=== PATIENT | female | born 1985 | race Caucasian/White ===

== ENCOUNTER 2016-07-25 16:59 | Emergency (ER) | payer OTHER ==
[~2016-07-25] VITALS: Ht 147.3 cm; Wt 43.5 kg
[~2016-07-25 16:59] MED LIST: ASPI-390 PO; IBUP-1050 PO; MULTTAB PO; OMEGCAP2 PO
[2016-07-25 17:03] VITALS: Ht 147.3 cm; Wt 43.5 kg
[2016-07-25] MEDS ORDERED: LORAZEPAM 2 MG/ML 1 ML VIAL IV STA ×2 (18:38→21:33)
[2016-07-25 18:40] VITALS: O2SAT 96
[2016-07-25 18:54] LABS: HEMATOCRIT 38.5 % (37-47); MEAN CORPUSCULAR HEMOGLOBIN 27.2 pg (25-34); MEAN PLATELET VOLUME 9.3 fL (7.4-10.4); PLATELET COUNT 306 K/uL (130-400); RED BLOOD COUNT 4.81 M/uL (4.2-5.4); WHITE BLOOD COUNT 11.24 K/uL (4.8-10.8)
[2016-07-25 19:03] LABS: INR 0.9 (0.9-1.1)
[2016-07-25 19:14] LABS: BUN/CREATININE RATIO 8.5 (10-20); CALCIUM 8.5 mg/dl (8.5-10.1); CREATININE 0.72 mg/dl (0.60-1.20); MAGNESIUM 1.8 mg/dl (1.8-2.4); POTASSIUM 2.9 mmol/L (3.5-5.1); PREG INTERNAL NEGATIVE QC NEG CLEAR BACKGROUND; PREG INTERNAL POSITIVE QC POS CONTROL LINE
[2016-07-25 19:23] LABS: THYROID STIMULATING HORMONE 1.65 uIu/ml (0.300-4.500)
[2016-07-25 19:40] LABS: BASO % 0.2 %; BASO ABS # 0.02 K/uL (0-0.2); COMPLETE YES; EOS % 0.4 %; IG% 0.2 %; LYMPH % 12.7 %; LYMPH ABS # 1.43 K/uL (1.2-3.4); MONO % 3.8 %; NEUT % 82.7 %
[2016-07-25] MEDS ORDERED: POTASSIUM CHLORIDE 10 MEQ / 100ML WTR IV STA (20:25)
[2016-07-25] MEDS ORDERED: POTASSIUM CHLORIDE 10 MEQ TABCR PO STA (20:25)
[2016-07-25] MEDS ORDERED: OPTIRAY 320 IV PRN (20:30)
--- NOTE | 2016-07-25 20:53 | DIAGNOSTIC IMAGING REPORT ---
CT ANGIOGRAPHY OF THE CHEST, PULMONARY EMBOLUS PROTOCOL CLINICAL HISTORY: Faint. Hot flashes. COMPARISON STUDY: No previous studies for comparison. TECHNIQUE: Following IV administration of 77 mL of Optiray-320, helical axial images of the chest were obtained utilizing the pulmonary embolus protocol. Maximal intensity projections and sagittal and coronal reformats were viewed on an independent 3D workstation. IV contrast was administered without complication. CT DOSE: 163.78 mGy.cm FINDINGS: No pulmonary emboli are identified. There is no evidence of thoracic aortic dissection. The size of the heart is normal. There is no pericardial effusion. No enlarged axillary, mediastinal or hilar lymph nodes are present. There is an azygos fissure. The central airways are patent. Lungs are clear. There is no pneumothorax or pleural effusion. Bony thorax and upper abdomen are unremarkable within visualized portions. IMPRESSION: 1. No pulmonary emboli identified. 2. No acute intrathoracic findings. Electronically signed by: Jus Case M.D. 07/25/2016 8:51 PM Dictated Date/Time: 07/25/2016 8:45 PM
[2016-07-25 23:15] VITALS: BP 123/71; PULSE 89; O2SAT 96
--- NOTE | 2016-07-26 00:34 | EMERGENCY ROOM VISIT NOTE ---
History Report prepared by Alessandro: Philly Freed Under the Supervision of: Dr. Ricardo Conner M.D. First contact with patient: 18:26 Chief Complaint: SYNCOPE (NEAR SYNCOPE) Stated Complaint: FAINT, HOT FLASHES Nursing Triage Summary: Pt states, "I am shaky and feel like I could pass out. I had two excedrin migraines and some coffee. I had a h/a." No h/a in triage. Denies cp. +SOB. History of Present Illness The patient is a 31 year old female who presents to the Emergency Room with complaints of a near syncopal episode that occurred around 1500 today. The patient states that she has a history of migraines and states that she typically takes Excedrin Migraine to treat them. She states that around 0830 this morning she noticed a headaches so she took an Excedrin. The patient states that around 1130 she had three cups of coffee. She states that at 1230 she took another Excedrin Migraine tablet. She states that she has been feeling jittery and shaky all day. The patient states that she has been feeling lightheaded and dizzy today. She denies any loss of consciousness today. The patient states that around 1630 she noticed her heart rate increasing. She states that her symptoms have worsened with standing. The patient notes a history of anxiety and anemia and states that she has been under increased stress recently. She denies any fever, flu-like symptoms chest pain, abdominal pain, vomiting, or diarrhea. The patient states that she is currently menstruating, states that it is normally heavy, and states that it is normal timing. She states that she last had her thyroid tested 6 years ago, noting that her results were borderline high. The patient denies any recent weight loss or hair thinning, but states that she is always hot at night. She states that she does Pilates often and becomes short of breath, but denies having any of these symptoms with her exercise. The patient denies any drug use , control use, or tobacco use. She denies any family history of sudden . The patient states that she ate today, but not much. She states that she drank 4-5 glasses of water prior to coming to the emergency department. Source of History: patient Onset: 1500 today Position: other (global) Quality: other (lightheadedness) Timing: constant Modifying Factors (Worsening): elevation (standing) Associated Symptoms: No LOC, No abdominal pain, No diarrhea, No fevers, No vomiting Note: Associated Symptoms: jittery, shaky, lightheaded, dizzy Review of Systems See HPI for pertinent positives & negatives. A total of 10 systems reviewed and were otherwise negative. Past Medical & Surgical Medical Problems: (1) Anemia (2) Anxiety Family History Diabetes mellitus Hypertension Social History Smoking Status: Former Smoker Alcohol Use: none Drug Use: none Marital Status: Occupation Status: employed Current/Historical Medications Scheduled Ozexwnf-Fffjnftbmbvzs-Zqmrlalp (Excedrin Migraine), 1 TAB PO PRN Allergies Coded Allergies: Sulfa Drugs (Verified Allergy, Intermediate, RASH, SOB, 07/25/16) Physical Exam Vital Signs Date Time Temp Pulse Resp B/P Pulse Ox O2 Delivery O2 Flow Rate FiO2 07/25/16 23:15 89 18 123/71 96 07/25/16 23:14 119 18 123/71 96 Room Air 07/25/16 22:20 116 07/25/16 22:13 116 20 139/65 98 Room Air 07/25/16 21:12 119 20 126/75 99 Room Air 07/25/16 20:10 150 16 142/72 100 Room Air 07/25/16 20:02 130 139/73 139 149/70 150 133/79 07/25/16 18:43 117 07/25/16 18:40 96 Room Air 07/25/16 18:40 120 16 142/72 100 Room Air 07/25/16 17:03 127 20 123/65 100 Room Air Physical Exam Constitutional: Vital signs reviewed. Eyes: Pupils are equal round reactive to light. Conjunctiva are noninjected. ENT: Pharynx is clear without erythema or exudate. Mucous membranes are moist. Neck supple without meningeal signs. No thyromegaly Respiratory: Clear to auscultation bilaterally. Breath sounds are equal bilaterally. Cardiovascular: Tachycardic rate at 115 and regular rhythm. No rubs or gallops. GI: Soft, nondistended and nontender. Bowel sounds are present. Musculoskeletal: No peripheral edema. No lower extremity tenderness. Integumentary: No cyanosis. Neurological: The patient is awake and alert. No focal deficits. Psychiatric: Normal affect. Medical Decision & Procedures ER Provider Diagnostic Interpretation: CT results as stated below per my review and radiologist interpretation. CT ANGIOGRAPHY OF THE CHEST, PULMONARY EMBOLUS PROTOCOL CLINICAL HISTORY: Faint. Hot flashes. COMPARISON STUDY: No previous studies for comparison. TECHNIQUE: Following IV administration of 77 mL of Optiray-320, helical axial images of the chest were obtained utilizing the pulmonary embolus protocol. Maximal intensity projections and sagittal and coronal reformats were viewed on an independent 3D workstation. IV contrast was administered without complication. CT DOSE: 163.78 mGy.cm FINDINGS: No pulmonary emboli are identified. There is no evidence of thoracic aortic dissection. The size of the heart is normal. There is no pericardial effusion. No enlarged axillary, mediastinal or hilar lymph nodes are present. There is an azygos fissure. The central airways are patent. Lungs are clear. There is no pneumothorax or pleural effusion. Bony thorax and upper abdomen are unremarkable within visualized portions. IMPRESSION: 1. No pulmonary emboli identified. 2. No acute intrathoracic findings. Electronically signed by: Jus Case M.D. 07/25/2016 8:51 PM Dictated Date/Time: 07/25/2016 8:45 PM Laboratory Results 07/25/16 18:40 Red Blood Count 4.81, Mean Corpuscular Volume 80.0, Mean Corpuscular Hemoglobin 27.2, Mean Corpuscular Hemoglobin Concent 34.0, Mean Platelet Volume 9.3, Neutrophils (%) (Auto) 82.7, Lymphocytes (%) (Auto) 12.7, Monocytes (%) (Auto) 3.8, Eosinophils (%) (Auto) 0.4, Basophils (%) (Auto) 0.2, Neutrophils # (Auto) 9.29, Lymphocytes # (Auto) 1.43, Monocytes # (Auto) 0.43, Eosinophils # (Auto) 0.05, Basophils # (Auto) 0.02 07/25/16 18:40 Test 07/25/16 18:40 07/25/16 18:48 White Blood Count 11.24 K/uL (4.8-10.8) Red Blood Count 4.81 M/uL (4.2-5.4) Hemoglobin 13.1 g/dL (12.0-16.0) Hematocrit 38.5 % (37-47) Mean Corpuscular Volume 80.0 fL (80-100) Mean Corpuscular Hemoglobin 27.2 pg (25-34) Mean Corpuscular Hemoglobin Concent 34.0 g/dl (32-36) Platelet Count 306 K/uL (130-400) Mean Platelet Volume 9.3 fL (7.4-10.4) Neutrophils (%) (Auto) 82.7 % Lymphocytes (%) (Auto) 12.7 % Monocytes (%) (Auto) 3.8 % Eosinophils (%) (Auto) 0.4 % Basophils (%) (Auto) 0.2 % Neutrophils # (Auto) 9.29 K/uL (1.4-6.5) Lymphocytes # (Auto) 1.43 K/uL (1.2-3.4) Monocytes # (Auto) 0.43 K/uL (0.11-0.59) Eosinophils # (Auto) 0.05 K/uL (0-0.5) Basophils # (Auto) 0.02 K/uL (0-0.2) RDW Standard Deviation 38.3 fL (36.4-46.3) RDW Coefficient of Variation 13.3 % (11.5-14.5) Immature Granulocyte % (Auto) 0.2 % Immature Granulocyte # (Auto) 0.02 K/uL (0.00-0.02) Red Blood Cell Morphology Unremarkable Prothrombin Time 10.0 SECONDS (9.0-12.0) Prothromb Time International Ratio 0.9 (0.9-1.1) Activated Partial Thromboplast Time 26.4 SECONDS (21.0-31.0) Partial Thromboplastin Ratio 1.0 Anion Gap 12.0 mmol/L (3-11) Est Creatinine Clear Calc Drug Dose 73.1 ml/min Estimated GFR () 129.3 Estimated GFR (Non- 111.6 BUN/Creatinine Ratio 8.5 (10-20) Calcium Level 8.5 mg/dl (8.5-10.1) Magnesium Level 1.8 mg/dl (1.8-2.4) Total Bilirubin 0.4 mg/dl (0.2-1) Direct Bilirubin 0.1 mg/dl (0-0.2) Aspartate Amino Transf (AST/SGOT) 26 U/L (15-37) Alanine Aminotransferase (ALT/SGPT) 31 U/L (12-78) Alkaline Phosphatase 58 U/L (45-117) Total Protein 7.7 gm/dl (6.4-8.2) Albumin 3.9 gm/dl (3.4-5.0) Thyroid Stimulating Hormone (TSH) 1.650 uIu/ml (0.300-4.500) Free Thyroxine 1.38 ng/dl (0.80-1.60) Human Chorionic Gonadotropin, Qual NEG (NEG) Bedside D-Dimer > 450 ng/mlFEU (0-450) Bedside Troponin I 0.000 ng/ml (0-0.045) Laboratory results as reviewed by me. Medications Administered Medications (Trade) Dose Ordered Sig/Osiel Route Start Time Stop Time Status Last Admin Dose Admin Lorazepam (Ativan Inj) 0.5 mg NOW STAT IV 07/25/16 18:38 07/25/16 18:40 DC 07/25/16 20:05 0.5 MG Potassium Chloride (Kcl 10 Meq / Wtr) 10 meq NOW STAT IV 07/25/16 20:25 07/25/16 20:26 DC 07/25/16 21:07 10 MEQ Potassium Chloride (Klor-Con M10) 10 meq NOW STAT PO 07/25/16 20:25 07/25/16 20:26 DC 07/25/16 21:06 10 MEQ Lorazepam (Ativan Inj) 0.5 mg NOW STAT IV 07/25/16 21:33 07/25/16 21:34 DC 07/25/16 22:10 0.5 MG ECG Indication: syncope Rate (beats per minute): 127 Rhythm: sinus tachycardia Findings: no acute ischemic change, no ectopy, other (no preexcitation) ED Course 1827: The patient was evaluated in room A9B. A complete history and physical exam was performed. 1837: Ordered Ativan Inj 0.5 mg IV. 2024: Ordered Potassium Chloride 10 meq PO, Potassium Chloride 10 meq IV. 2034: I reevaluated the patient and she is feeling better. I discussed the test results with her at this time. She is going to have a CT scan. 2132: I reevaluated the patient and she is still feeling anxious. Ordered Ativan Inj 0.5 mg IV. 2229: I reevaluated the patient and she just got her second dose of Ativan and is feeling a little bit better. 2244: I reevaluated the patient and she is feeling better. She is ready to go home. She has had no palpitations or chest pain. The patients heart rate is still around 115 beats per minutes. I discussed all the exam findings with her and I discussed the treatment plan. I told her to avoid all caffeine and stimulants. She verbalized complete understanding and agreement. She is ready to go home. Medical Decision This is a 31-year-old female who presents with lightheadedness and palpitations. Differential diagnosis includes dehydration, electrolyte abnormality, metabolic derangement, hyperthyroidism, dysrhythmia, anemia, caffeine overdose. I did perform a limited focused review of portions of the patient's old chart on the electronic medical record. The patient has had no recent pertinent visits to this hospital. I did evaluate the patient as noted above. The patient is presenting with feeling lightheaded and palpitations. She is tachycardic on examination. She does state that she took a large amount of caffeine today in the form of her Excedrin Migraine as well as 3 cups of coffee. She also states that she has significant anxiety which may be contributing to her tachycardia. IV access was established. The patient was placed on a continuous monitor and storage bin tender. I did order and personally review the patient's 12-lead EKG as described above. The patient has sinus tachycardia without evidence of preexcitation or other dysrhythmia. I did order and review the patient's blood work as noted in the electronic medical record. Thyroid function tests are unremarkable. She is hypokalemic. I did treat her with IV KCl and oral potassium. It is unclear why she is hypokalemic and she will need to have this tested again by her regular physician. Her troponin is negative. D-dimer is elevated. I did discuss this with the patient and she agreed to CT scanning. I did order a CT of the chest. I did review the images myself as well as the radiology report as described above. There is no evidence of pulmonary embolism or acute process. I did treat the patient with Ativan IV 2. She did feel better although had persistent tachycardia. She stated, however, that she did not feel any palpitations. At this time I did recommend very close follow up with her physician within 48 hours for further evaluation. She currently feels sleepy from the Ativan but otherwise has no complaints. She was discharged with her in good condition. She was given return instructions as outlined below. Impression Primary Impression: Dizziness Additional Impressions: Tachycardia Hypokalemia Scribe Attestation The scribe's documentation has been prepared under my direct and personally reviewed by me in its entirety. I confirm that the note above accurately reflects all work, treatment, procedures, and medical decision making performed by me. Departure Information Dispostion Home / Self-Care Referrals No Doctor, Assigned (PCP) Forms HOME CARE DOCUMENTATION FORM, IMPORTANT VISIT INFORMATION, Work Instructions Patient Instructions ED Dizziness [facility], ED Palpitations, My [facility] Additional Instructions You have been examined and treated today on an emergency basis only. This is not a substitute for, or an effort to provide, complete comprehensive medical care. It is impossible to recognize and treat all injuries or illnesses in a single emergency department visit. It is therefore important that you follow up closely with your physician within 48 hours. Call as soon as possible for an appointment. Return for worsening symptoms or if you develop fever, vomiting, chest pain, shortness of breath or any other concerning symptoms. Problem Qualifiers
[2016-07-29] MEDS ORDERED: PROP20TA67 PO (09:51)
== END 2016-07-25 23:30 | disposition home or self-care (01) ==
LOC: C.EDB 17:00 → C.EDA 23:30
DX: R42 Dizziness and giddiness (principal); R00.0 Tachycardia, unspecified; E87.6 Hypokalemia; Z83.3 Family history of diabetes mellitus; Z82.49 Family history of ischemic heart disease and other diseases of the circulatory system; Z87.891 Personal history of nicotine dependence; D64.9 Anemia, unspecified

== ENCOUNTER 2016-07-27 15:44 | Observation (INO) | payer OTHER ==
[~2016-07-27] VITALS: Ht 147.3 cm; Wt 47.6 kg
[~2016-07-27 15:44] MED LIST changes: -IBUP-1050 PO; -MULTTAB PO; -OMEGCAP2 PO
--- NOTE | 2016-07-27 16:04 | EMERGENCY ROOM VISIT NOTE ---
History Report prepared by Alessandro: Jen Medina Under the Supervision of: Dr. Zaid Mendez M.D. First contact with patient: 15:57 Chief Complaint: ANXIETY Stated Complaint: CHEST PAIN, ANXIETY, DIZZINESS, SOB Nursing Triage Summary: pt c/o chest pain and high anxiety for same sx started 1000 with anxiety. chets pain strated 2 hours ago History of Present Illness The patient is a 31 year old female who presents to the Emergency Room with complaints of persistent anxiety that started around 1000 this morning. The patient mentions that these symptoms started shortly after drinking a cup of coffee. Associated symptoms include chest pain that started 2 hours [employer], shortness of breath, and shaking. The patient was evaluated in the ED 3 days ago for similar symptoms. She was given Ativan which relieved her symptoms. The patient does not have Ativan at home. She denies suicidal or homicidal ideations. She also denies visual or auditory hallucinations. She's had no lightheadedness or dizziness. No focal numbness or weakness. She has no significant bleeding. Denies . Source of History: patient, spouse/significant other Onset: 1000 this morning Position: other (Global ) Timing: other (Persistent ) Modifying Factors (Relieving): other (None) Associated Symptoms: + SOB, + chest pain Note: Additional associated symptoms include shaking Review of Systems See HPI for pertinent positives & negatives. A total of 10 systems reviewed and were otherwise negative. Past Medical & Surgical Medical Problems: (1) Anemia (2) Anxiety Old medical records were reviewed. Nurse's notes were reviewed and I agree with. Family History Diabetes mellitus Hypertension Social History Smoking Status: Never Smoker Alcohol Use: none Drug Use: none Marital Status: Occupation Status: employed Current/Historical Medications Scheduled Yabnzoy-Qkunxhbmastrj-Jjozgqyx (Excedrin Migraine), 1 TAB PO PRN Allergies Coded Allergies: Sulfa Drugs (Verified Allergy, Intermediate, RASH, SOB, 07/27/16) Physical Exam Vital Signs Date Time Temp Pulse Resp B/P Pulse Ox O2 Delivery O2 Flow Rate FiO2 07/27/16 18:48 104 16 112/68 100 Room Air 07/27/16 17:18 103 15 120/68 99 Room Air 07/27/16 16:48 108 07/27/16 15:48 36.8 129 18 130/63 100 Room Air Physical Exam General: Non ill appearing young female in no acute distress. HEENT: Normal cephalic atraumatic. Pupils are equal round and reactive to light. Extraocular movements are intact. Oropharynx is pink with moist mucous membranes. No swelling of the mouth lips or tongue. Neck: Supple with a midline trachea. No meningeal signs or stiffness, no JVD or bruits. No Stridor. Chest: Clear to auscultation bilaterally. No wheezes or rhonchi. No increased work of breathing. Heart: Tachycardic but regular rate and rhythm. No murmurs appreciated Abdomen: Soft nontender, nondistended without rebound guarding or rigidity. Extremities: No cyanosis clubbing or edema. No calf tenderness or assymetry Spine/Back. Non tender to palpation. No CVA tenderness Skin: Good turgor without rashes. Neurologic exam: Cranial nerves two through 12 are intact. Motor and sensation are intact and symmetrical throughout. Psych: Normal affect. Mildly anxious, denies suicidal or homicidal ideations. Medical Decision & Procedures Laboratory Results 07/27/16 16:25 Test 07/27/16 16:25 07/27/16 16:30 Anion Gap 8.0 mmol/L (3-11) Est Creatinine Clear Calc Drug Dose 80.9 ml/min Estimated GFR () 137.1 Estimated GFR (Non- 118.3 BUN/Creatinine Ratio 6.5 (10-20) Calcium Level 9.1 mg/dl (8.5-10.1) Total Bilirubin 0.5 mg/dl (0.2-1) Direct Bilirubin 0.2 mg/dl (0-0.2) Aspartate Amino Transf (AST/SGOT) 16 U/L (15-37) Alanine Aminotransferase (ALT/SGPT) 23 U/L (12-78) Alkaline Phosphatase 55 U/L (45-117) Bedside Troponin I 0.000 ng/ml (0-0.045) Total Protein 7.7 gm/dl (6.4-8.2) Albumin 4.0 gm/dl (3.4-5.0) Lipase 153 U/L (73-393) Thyroid Stimulating Hormone (TSH) 1.390 uIu/ml (0.300-4.500) Ethyl Alcohol mg/dL < 3.0 mg/dl (0-3) Urine Opiates Screen NEG (NEG) Urine Methadone, Qualitative NEG (NEG) Urine Barbiturates NEG (NEG) Urine Phencyclidine (PCP) Level NEG (NEG) Ur Amphetamine/Methamphetamine NEG (NEG) MDMA (Ecstasy) Screen NEG (NEG) Urine Benzodiazepines Screen NEG (NEG) Urine Cocaine Metabolite NEG (NEG) Urine Marijuana (THC) NEG (NEG) Laboratory studies as stated above per my review. Medications Administered Medications (Trade) Dose Ordered Sig/Osiel Route Start Time Stop Time Status Last Admin Dose Admin Lorazepam 0.5 mg 0.5 mg NOW STAT SL 07/27/16 16:13 07/27/16 16:14 DC 07/27/16 16:20 0.5 MG Sodium Chloride 1,000 ml @ 999 mls/hr Q1H1M STAT IV 07/27/16 18:37 07/27/16 19:37 DC 07/27/16 18:47 999 MLS/HR Sodium Chloride (Nss 1000ml) 1,000 ml @ 150 mls/hr Q6H40M ONCE IV 07/27/16 18:37 07/27/16 21:54 DC 07/27/16 20:23 150 MLS/HR Lorazepam (Ativan Inj) 0.5 mg NOW STAT IV 07/27/16 18:37 07/27/16 18:38 DC 07/27/16 18:46 0.5 MG Procedure 1954: EKG #2: Sinus tachycardia rate of 107. No ischemic changes. No ectopy. ECG Indication: chest pain Rate (beats per minute): 106 Rhythm: sinus tachycardia Findings: no acute ischemic change, no ectopy Comparison ECG Date: July 26, 2015 Change: no significant change ED Course 1600: Past medical records reviewed. The patient was evaluated in room A8, and a complete history and physical examination were performed. 1613: Ordered Ativan Tablet 0.5 mg SL. 1823: I reevaluated the patient. She appears well. Her heart rate raised to 150 while discussing findings with the patient. It immediately came back down. 1836: Ordered Ativan Injection 0.5 mg IV, Sodium Chloride 1,000 ml @ 999 mls/hr IV. 1954: I reevaluated the patient. Her heart rate raises to 140 when I enter the room. 2008: I discussed the patient's case with Dr. Torrez ([facility] [place] He will evaluate the patient for further management and care. Medical Decision Differentials include, but are not limited to; Anxiety, depression, arrhythmia, electrolyte/metabolic abnormality, anemia. This patient comes in as described above. She was placed in room A8. She is here for treatment evaluation tachycardic area and anxiety. She looks well and does not appear to be anxious. She was given Ativan 0.5 mg by mouth an extensive workup was obtained. she was seen here couple days ago and reviewed her report then she had a negative CT for PE. she had normal TSH so therefore this is unlikely thyroid. I did repeat her labs here. she has no acute electrolyte or metabolic abnormalities .EKG shows sinus tachycardia .upon reassessment she still says she feels anxious and her heart rate goes up in the 140s- 150s when she just sitting there and she does not appear to be anxious. In light of this, I did establish an IV and had her given 1 L IV normal saline bolus and additional EKG was obtained which shows sinus tachycardia no change compared to EKG #1. With her persistent tachycardia, I do think she needs to be admitted for further treatment and evaluation she may need to be started on a beta srinath or antianxiety medications. Dr. Hein was consulted and saw the patient ER will admit her for these measures. Consults Time Called: 2003 Consulting Physician: Dr. Torrez ([facility] [place]) Returned Call: 2008 I discussed the patient's case with Dr. Torrez ([facility] [place] He will evaluate the patient for further management and care. Impression Primary Impression: Tachycardia Additional Impression: Acute anxiety Scribe Attestation The scribe's documentation has been prepared under my direction and personally reviewed by me in its entirety. I confirm that the note above accurately reflects all work, treatment, procedures, and medical decision making performed by me. Departure Information Dispostion Being Evaluated By Hospitalist Referrals No Doctor, Assigned (PCP) Patient Instructions My [facility] Problem Qualifiers
[2016-07-27] MEDS ORDERED: LORAZEPAM 0.5 MG TAB SL STA (16:13)
[2016-07-27 16:37] LABS: BASO % 0.2 %; BASO ABS # 0.02 K/uL (0-0.2); COMPLETE YES; EOS % 0.1 %; HEMATOCRIT 38.3 % (37-47); IG% 0.2 %; LYMPH % 11.1 %; LYMPH ABS # 1.16 K/uL (1.2-3.4); MEAN CELL VOLUME 81.7 fL (80-100); MEAN CORPUSCULAR HEMOGLOBIN 28.4 pg (25-34); MEAN CORPUSCULAR HGB CONC 34.7 g/dl (32-36); MEAN PLATELET VOLUME 9.6 fL (7.4-10.4); MONO % 3.7 %; NEUT % 84.7 %; PLATELET COUNT 311 K/uL (130-400); RED BLOOD COUNT 4.69 M/uL (4.2-5.4); WHITE BLOOD COUNT 10.44 K/uL (4.8-10.8)
[2016-07-27 17:02] LABS: BUN/CREATININE RATIO 6.5 (10-20); CALCIUM 9.1 mg/dl (8.5-10.1); CREATININE 0.65 mg/dl (0.60-1.20); POTASSIUM 3.9 mmol/L (3.5-5.1)
[2016-07-27 17:14] LABS: BENZODIAZEPINE, URINE NEG (NEG); COCAINE,URINE NEG (NEG); PHENCYCLIDINE, URINE NEG (NEG)
[2016-07-27] MEDS ORDERED: SODIUM CHLORIDE 0.9% 1000ML 1,000 ML IV STA (18:37)
[2016-07-27] MEDS ORDERED: LORAZEPAM 2 MG/ML 1 ML VIAL IV STA (18:37)
[2016-07-27] MEDS ORDERED: SODIUM CHLORIDE 0.9% 1000ML 1,000 ML IV ONE (18:37)
[2016-07-27] MEDS ORDERED: PROPRANOLOL HCL 10 MG TAB PO STA (20:44)
[2016-07-27] MEDS ORDERED: LORAZEPAM 1 MG TAB PO STA (20:44)
[2016-07-27] MEDS ORDERED: ONDANSETRON INJ 2 MG/ML 2 ML VIAL IV PRN (20:45)
[2016-07-27] MEDS ORDERED: ACETAMINOPHEN 325 MG TAB PO PRN (20:45)
[2016-07-27] MEDS ORDERED: MAGNESIUM HYDROXIDE SUSP 30 ML UDC PO PRN (20:45)
[2016-07-27] MEDS ORDERED: TRAMADOL HCL 50 MG TAB PO PRN (20:45)
[2016-07-27] MEDS ORDERED: POLYETHYLENE (MIRALAX) 17 GM PACK PO PRN (20:45)
[2016-07-27] MEDS ORDERED: ALUMINUM/MAGNESIUM/SIMETH (MAALOX MAX) 30 ML UDC PO PRN (20:45)
--- NOTE | 2016-07-27 20:56 | History and Physical ---
History & Physical Date & Time of Service: Jul 27, 2016 at 20:46 Chief Complaint: Chest Pain, Anxiety, Dizziness, Sob Primary Care Physician: No Doctor, Assigned History of Present Illness Source: patient 31 y/o F with no known medical history. The pt took 2 Excedrin and drank 2 cups of coffee on Sat and developed anxiety and a racing HR after. This resolved spontaneously and she did not have any coffee the following day. She had a cup of coffee again today and the rapid HR returned. It did not resolve for several hours prompting her to visit the emergency room. She describes chest tightness, SOB and anxiety along with tachycardia. On arrival to the ER her HR was between 130-150. An EKG revealed sinus tachycardia. The pt states that she had a similar episode 10 yrs prior where her HR was up to 160. There was no etiology delineated at that time and her HR returned to normal with sedatives. She received 2 doses of PO Ativan in the ER which served to slow her HR briefly however it persists at 130-140 at the time of admission. Past Medical/Surgical History Medical Problems: (1) Anemia Status: Resolved Family History Diabetes mellitus Hypertension Pt exercises regularly, does not drink or smoke, is studying [employer] currently. Social History Smoking Status: Never Smoker Drug Use: none Marital Status: Housing status: lives with family Occupational Status: employed Allergies Coded Allergies: Sulfa Drugs (Verified Allergy, Intermediate, RASH, SOB, 07/27/16) Home Medications Scheduled Retbyba-[id number] (Excedrin Migraine), 1 TAB PO PRN Review of Systems Constitutional: No chills, No fever, No sweats Eyes: No eye pain, No worsening of vision ENT: No hearing loss, No nasal symptoms, No unusual epistaxis Respiratory: + shortness of breath, No cough, No sputum Cardiovascular: + chest pain (chest tightness with tachycardia) Abdomen: No nausea, No pain, No vomiting Musculoskeletal: No joint pain, No muscle pain Genitourinary - Female: No dysuria, No urinary frequency, No urinary urgency Neurologic: No memory loss, No paralysis Psychiatric: + anxiety, No depression symptoms Endocrine: No fatigue Hematologic / Lymphatic: No abnormal bleeding/bruising Integumentary: No rash Allergic / Immunologic: No environmental allergies Physical Exam Vital Signs Date Time Temp Pulse Resp B/P Pulse Ox O2 Delivery O2 Flow Rate FiO2 07/27/16 18:48 104 16 112/68 100 Room Air 07/27/16 17:18 103 15 120/68 99 Room Air 07/27/16 16:48 108 07/27/16 15:48 36.8 129 18 130/63 100 Room Air General Appearance: WD/WN, no apparent distress Head: normocephalic, atraumatic Eyes: normal inspection, PERRL, EOMI ENT: normal ENT inspection, pharynx normal Neck: supple, no adenopathy, thyroid normal, no JVD Respiratory/Chest: chest non-tender, lungs clear, normal breath sounds, no respiratory distress, no accessory muscle use Cardiovascular: no edema, no gallop, no JVD, no murmur, normal peripheral pulses, + tachycardia Abdomen/GI: normal bowel sounds, non tender, soft Back: normal inspection, no CVA tenderness, no muscle spasm, normal range of motion Extremities/Musculoskelatal: normal inspection, no calf tenderness, normal capillary refill, no pedal edema, normal range of motion Neurologic/Psych: drywall 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 II-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 nml as tested, no motor/sensory deficits, alert, normal mood/affect, normal reflexes, oriented x 3 Skin: normal color, warm/dry, no rash Diagnostics Laboratory Results Results Past 24 Hours Test 07/27/16 16:25 07/27/16 16:30 07/27/16 20:43 Range/Units RDW Standard Deviation 39.5 36.4-46.3 fL RDW Coefficient of Variation 13.2 11.5-14.5 % Immature Granulocyte % (Auto) 0.2 % Immature Granulocyte # (Auto) 0.02 0.00-0.02 K/uL Sodium Level 135 136-145 mmol/L Potassium Level 3.9 3.5-5.1 mmol/L Chloride Level 101 98-107 mmol/L Carbon Dioxide Level 26 21-32 mmol/L Anion Gap 8.0 3-11 mmol/L Blood Urea Nitrogen 4 7-18 mg/dl Creatinine 0.65 0.60-1.20 mg/dl Est Creatinine Clear Calc Drug Dose 80.9 ml/min Estimated GFR () 137.1 Estimated GFR (Non- 118.3 BUN/Creatinine Ratio 6.5 10-20 Random Glucose 106 70-99 mg/dl Calcium Level 9.1 8.5-10.1 mg/dl Total Bilirubin 0.5 0.2-1 mg/dl Direct Bilirubin 0.2 0-0.2 mg/dl Aspartate Amino Transf (AST/SGOT) 16 15-37 U/L Alanine Aminotransferase (ALT/SGPT) 23 12-78 U/L Alkaline Phosphatase 55 45-117 U/L Bedside Troponin I 0.000 0-0.045 ng/ml Total Protein 7.7 6.4-8.2 gm/dl Albumin 4.0 3.4-5.0 gm/dl Lipase 153 73-393 U/L Ethyl Alcohol mg/dL < 3.0 0-3 mg/dl Urine Opiates Screen NEG NEG Urine Methadone, Qualitative NEG NEG Urine Barbiturates NEG NEG Urine Phencyclidine (PCP) Level NEG NEG Ur Amphetamine/Methamphetamine NEG NEG MDMA (Ecstasy) Screen NEG NEG Urine Benzodiazepines Screen NEG NEG Urine Cocaine Metabolite NEG NEG Urine Marijuana (THC) NEG NEG EKG Sinus tach Impression Assessment and Plan 31 y/o F with no known medical history. The pt took 2 Excedrin and drank 2 cups of coffee on Sat and developed anxiety and a racing HR after. This resolved spontaneously and she did not have any coffee the following day. She had a cup of coffee again today and the rapid HR returned. It did not resolve for several hours prompting her to visit the emergency room. She describes chest tightness, SOB and anxiety along with tachycardia. On arrival to the ER her HR was between 130-150. An EKG revealed sinus tachycardia. Persistent sinus tach - Pt will be monitored on telemetry, we will check a TSH and order an echo. Cardiology eval requested. Pt will be provided with Propranolol and Ativan this PM. She doesn't have ongoing CP however we will provide analgesics as needed. Suspicion is low currently for cardiomyopathy. Catecholamine excess is also unlikely as she has a low-normal BP. She does not have risk factors for PE, hypoxia or evidence of strain on EKG. Lovenox prophylaxis - full code Total time for this admit including review of labs , records , EKG and discussion with pt and ER MD - 33 min Level of Care Telemetry Resuscitation Status FULL RESUSCITATION VTE Prophylaxis VTE Risk Assessment Done? Y/N: Yes Risk Level: Low Given or contraindicated: Enoxaparin (Lovenox)SQ
[2016-07-27] MEDS ORDERED: IV FLUIDS COMPLETED PRN (21:00)
[2016-07-27 21:33] VITALS: BP 109/76; PULSE 112; TEMP 36.8; O2SAT 100; Ht 147.3 cm; Wt 47.6 kg
[2016-07-27] MEDS ORDERED: D5NSS + 20MEQ KCL 1,000 ML IV SCH (22:30)
[2016-07-27 23:38] VITALS: BP 87/54; PULSE 108; TEMP 36.6; O2SAT 98
[2016-07-28 04:01] VITALS: BP 97/62; PULSE 90; TEMP 36.7; O2SAT 97
[2016-07-28 08:03] VITALS: BP 115/78; PULSE 108; TEMP 36.8; O2SAT 100
[2016-07-28] MEDS ORDERED: ENOXAPARIN 30 MG/0.3 ML SYR SQ SCH (09:00)
[2016-07-28 09:02] LABS: BASO % 0.2 %; BASO ABS # 0.01 K/uL (0-0.2); COMPLETE YES; EOS % 1.4 %; IG% 0.2 %; LYMPH % 23.6 %; LYMPH ABS # 1.38 K/uL (1.2-3.4); MEAN CELL VOLUME 82.8 fL (80-100); MEAN CORPUSCULAR HEMOGLOBIN 27.5 pg (25-34); MEAN CORPUSCULAR HGB CONC 33.2 g/dl (32-36); MEAN PLATELET VOLUME 9.9 fL (7.4-10.4); MONO % 6.5 %; NEUT % 68.1 %; PLATELET COUNT 298 K/uL (130-400); RED BLOOD COUNT 4.47 M/uL (4.2-5.4); WHITE BLOOD COUNT 5.85 K/uL (4.8-10.8)
[2016-07-28 11:58] VITALS: BP 103/68; PULSE 112; TEMP 37.1; O2SAT 97
--- NOTE | 2016-07-28 13:52 | CARDIOLOGY CONSULTATION ---
DATE OF CONSULTATION: 07/28/2016 DATE OF CONSULTATION: 07/28/2016. PERTINENT HISTORY: Mrs. Barrios is a 31-year-old white female admitted yesterday with anxiety and sinus tachycardia. This consultation was ordered to assist in her management. The patient claims she was in her usual state of health until the day of presentation when she began to note "tachycardia" and palpitations after drinking 2 cups of coffee and taking Excedrin for headache. She has noticed tachycardia palpitations when taking these medications previously. The patient has never known of a cardiac event. She is able to exercise routinely, does not experience exertional chest pain or limiting dyspnea. She further denies syncope, presyncope, PND, orthopnea, palpitations, lower extremity edema, and claudication. Her medications were reviewed in detail. REVIEW OF SYSTEMS: Ten-point review of systems was negative except for that described above. PAST MEDICAL HISTORY: Anxiety. USUAL OUTPATIENT MEDICATIONS: None. ALLERGIES: SULFA. 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 Does not use tobacco, alcohol, or drugs. FAMILY HISTORY: Father at age 46 from a ruptured aneurysm. Mother is alive and well. REVIEW OF SYSTEMS: A 10-point review of systems was negative except for that described above. PHYSICAL EXAMINATION: GENERAL: This is a well-developed, well-nourished white female in no acute distress. VITAL SIGNS: Blood pressure is 105/65 with a regular pulse of 90. Respiratory rate is 18. The patient is afebrile at 36.9 degrees Celsius. Saturation 97% on room air. NECK: Supple with full carotid upstrokes. There are no carotid bruits. Jugular venous pressure is flat at 90 degrees. There is no thyromegaly. CARDIOVASCULAR EXAMINATION: Reveals a regular rhythm with normal S1 and S2. No S3, S4, or murmurs are noted. LUNGS: Clear without rales, rhonchi, or wheezes. ABDOMEN: Soft, nontender without bruits. EXTREMITIES: Reveal intact radial artery pulses bilaterally. There is no peripheral edema. DATA: CBC notes hemoglobin 12.3, hematocrit 37.0, white count 5.8, platelet count 298,000. Electrolytes note a sodium 135, potassium 3.9, chloride 101, bicarb 26, BUN 4, creatinine 0.6, glucose 106. Liver transaminases are normal. Troponin I level is undetectable at 0.0. TSH is normal at 1.39. Urine toxicology screen is negative. EKG notes sinus tachycardia without abnormalities. CT scan of the chest shows no pulmonary emboli or other acute findings. IMPRESSION: Mrs. Barrios was admitted with anxiety and sinus tachycardia after administering caffeine and Excedrin. The patient explains that she often has palpitations at times when she is anxious. This has been a longstanding finding. She noticed a dramatic improvement after receiving a dose of her beta srinath. PLAN: 1. Review echocardiogram in its entirety (bedside interpretation notes normal left ventricular systolic function and no significant valvular pathology). 2. Could consider p.r.n. use of a beta srinath. 3. No further cardiac evaluation necessary.
--- NOTE | 2016-07-28 13:55 | ECHOCARDIOGRAM REPORT ---
*NOTICE TO RECEIVING [employer]Y This information is strictly Confidential and protected under [place] law. [place] law prohibits you from making any further disclosure of this information unless further disclosure is expressly permitted by the written consent of the person to whom it pertains or is authorized by law. A general authorization for the release of medical or other information is not sufficient for this purpose. Hospital accepts no responsibility if the information is made available to any other person, INCLUDING THE PATIENT. Interpretation Summary * Name: DORIAN BUCHANAN Study Date: 07/28/2016 06:43 AM BP: 115/78 mmHg * Patient Location: C.2T\S\S232\S\1 HR: 105 * : 1985 (M/d/yyyy) Gender: Female Height: 58 in * Age: 31 yrs Ethnicity: CA Weight: 104 lb * Ordering Physician: Tony Torrez * Referring Physician: Self, Referred * Performed By: Philly Grider RDCS * * Reason For Study: TACHYCARDIA * BSA: 1.4 m2 * History: TACHYCARDIA * -- Conclusions -- * Left ventricular systolic function is normal. * No regional wall motion abnormalities noted. * Ejection Fraction = 55-60%. * No valvular pathology. Procedure Details * A complete two-dimensional transthoracic echocardiogram was performed (2D, M-mode, Doppler and color flow Doppler). Left Ventricle * The left ventricle is normal in size. * There is normal left ventricular wall thickness. * Ejection Fraction = 55-60%. * Left ventricular systolic function is normal. * No regional wall motion abnormalities noted. Right Ventricle * The right ventricle is normal size. * The right ventricular systolic function is normal as assessed by tricuspid annular plane systolic excursion (TAPSE) (normal >1.5 cm). Atria * The left atrial size is normal. * Right atrial size is normal. * No ASD detected; PFO is not assessed. Mitral Valve * The mitral valve is normal in structure and function. * There is no mitral valve stenosis. * There is no mitral regurgitation noted. Tricuspid Valve * The tricuspid valve anatomy is normal. * Significant tricuspid regurgitation is absent. Aortic Valve * The aortic valve is normal in structure and function. * No hemodynamically significant valvular aortic stenosis. * There is no significant aortic regurgitation. Pulmonic Valve * The pulmonary valve is not well seen, but the Doppler examination is normal without significant regurgitation or stenosis. * There is no pulmonic valvular regurgitation. Great Vessels * The aortic root is normal size. * The pulmonary artery is not well visualized, but is probably normal size. Pericardium/Pleural * There is no pericardial effusion. Great Vessels * Normal inferior vena cava size and collapsability with sniff indicates a normal right atrial pressure of 3 mmHg MMode 2D Measurements and Calculations IVSd 0.71 cm IVSs 0.99 cm LVIDd 3.6 cm LVIDs 2.5 cm LVPWd 0.84 cm LVPWs 1.2 cm IVS/LVPW 0.85 FS 30.0 % EDV(Teich) 54.5 ml ESV(Teich) 22.8 ml EF(Teich) 58.1 % EDV(cubed) 46.7 ml ESV(cubed) 16.0 ml EF(cubed) 65.7 % % IVS thick 39.5 % % LVPW thick 43.4 % LV mass(C)d 75.0 grams LV mass(C)dI 54.4 grams/m\S\2 LV mass(C)s 74.0 grams LV mass(C)sI 53.7 grams/m\S\2 SV(Teich) 31.7 ml SI(Teich) 23.0 ml/m\S\2 SV(cubed) 30.7 ml SI(cubed) 22.2 ml/m\S\2 Ao root diam 2.3 cm Ao root area 4.3 cm\S\2 LA dimension 2.5 cm LA/Ao 1.1 LVAd ap4 20.6 cm\S\2 LVLd ap4 7.5 cm EDV(MOD-sp4) 46.7 ml EDV(sp4-el) 47.9 ml LVAs ap4 12.8 cm\S\2 LVLs ap4 6.5 cm ESV(MOD-sp4) 22.4 ml ESV(sp4-el) 21.6 ml EF(MOD-sp4) 52.0 % EF(sp4-el) 54.9 % LVAd ap2 22.2 cm\S\2 LVLd ap2 7.9 cm EDV(MOD-sp2) 52.7 ml EDV(sp2-el) 53.3 ml LVAs ap2 12.1 cm\S\2 LVLs ap2 6.0 cm ESV(MOD-sp2) 20.2 ml ESV(sp2-el) 20.9 ml EF(MOD-sp2) 61.7 % EF(sp2-el) 60.7 % LVLd %diff 4.7 % EDV(MOD-bp) 50.7 ml LVLs %diff -8.93 % ESV(MOD-bp) 21.8 ml EF(MOD-bp) 57.1 % SV(MOD-sp4) 24.3 ml SI(MOD-sp4) 17.6 ml/m\S\2 SV(MOD-sp2) 32.5 ml SI(MOD-sp2) 23.6 ml/m\S\2 SV(MOD-bp) 29.0 ml SI(MOD-bp) 21.0 ml/m\S\2 SV(sp4-el) 26.3 ml SI(sp4-el) 19.0 ml/m\S\2 SV(sp2-el) 32.3 ml SI(sp2-el) 23.4 ml/m\S\2 Doppler Measurements and Calculations Ao V2 max 115.6 cm/sec Ao max PG 5.3 mmHg Ao max PG (full) 2.5 mmHg LV V1 max PG 2.8 mmHg LV V1 max 84.4 cm/sec TR max gurvinder 209.4 cm/sec
[2016-07-28 15:33] VITALS: BP 138/82; PULSE 106; TEMP 36.7; O2SAT 98
[2016-07-28] MEDS: PROPRANOLOL HCL 60 MG LA CAP PO SCH (18:42)
[2016-07-28 19:38] VITALS: BP 118/83; PULSE 99; TEMP 36.8; O2SAT 99
[2016-07-28 23:22] VITALS: BP 104/71; PULSE 73; TEMP 36.7; O2SAT 98
--- NOTE | 2016-07-29 00:06 | Hospitalist Progress Note ---
Hospitalist Progress Note Date of Service Jul 28, 2016. Subjective Pt evaluation today including: conversation w/ patient, physical exam, chart review, lab review, conversation w/ service delivery consultant (Cardiology), review of inpatient medication list Pt still feels anxious, HRs into the 130s at times with minimal movement, sinus tach. SHe reports she took several doses of Excedrin for a menstrual migraine 2 days ago and drank several cups of coffee. She really thought the propranolol helped quite a bit. No chest pain or abd pain, no other issues. All Other Systems: Reviewed and Negative Objective Vital Signs Date Time Temp Pulse Resp B/P Pulse Ox O2 Delivery O2 Flow Rate FiO2 07/28/16 23:22 36.7 73 16 104/71 98 Room Air 07/28/16 20:00 Room Air 07/28/16 19:38 36.8 99 16 118/83 99 Room Air 07/28/16 16:00 Room Air 07/28/16 15:33 36.7 106 16 138/82 98 Room Air 07/28/16 12:00 Room Air 07/28/16 11:58 37.1 112 19 103/68 97 Room Air 07/28/16 08:03 36.8 108 20 115/78 100 Room Air 07/28/16 08:00 Room Air 07/28/16 04:01 36.7 90 16 97/62 97 Room Air 07/28/16 03:30 Room Air 07/28/16 00:00 Room Air Physical Exam General Appearance: no apparent distress, + thin Eyes: normal inspection, EOMI, sclerae normal ENT: pharynx normal Neck: trachea midline Respiratory/Chest: lungs clear, normal breath sounds, no respiratory distress, no accessory muscle use Cardiovascular: no edema, no gallop, no murmur, + tachycardia (with regular rhythm) Abdomen: normal bowel sounds, non tender, soft, no organomegaly, no pulsatile mass Extremities: non-tender, normal inspection, no pedal edema, no calf tenderness Neurologic/Psychiatric: no motor/sensory deficits, alert, normal mood/affect, oriented x 3 Skin: normal color, warm/dry, no rash Laboratory Results Last 24 Hours Test 07/28/16 08:45 07/28/16 22:30 White Blood Count 5.85 K/uL Red Blood Count 4.47 M/uL Hemoglobin 12.3 g/dL Hematocrit 37.0 % Mean Corpuscular Volume 82.8 fL Mean Corpuscular Hemoglobin 27.5 pg Mean Corpuscular Hemoglobin Concent 33.2 g/dl Platelet Count 298 K/uL Mean Platelet Volume 9.9 fL Neutrophils (%) (Auto) 68.1 % Lymphocytes (%) (Auto) 23.6 % Monocytes (%) (Auto) 6.5 % Eosinophils (%) (Auto) 1.4 % Basophils (%) (Auto) 0.2 % Neutrophils # (Auto) 3.99 K/uL Lymphocytes # (Auto) 1.38 K/uL Monocytes # (Auto) 0.38 K/uL Eosinophils # (Auto) 0.08 K/uL Basophils # (Auto) 0.01 K/uL RDW Standard Deviation 41.1 fL RDW Coefficient of Variation 13.5 % Immature Granulocyte % (Auto) 0.2 % Immature Granulocyte # (Auto) 0.01 K/uL Assessment and Plan 31 y/o F with history of menstrual migraines here with sinus tachycardia and palpitations. The pt took 2 Excedrin and drank 2 cups of coffee on Sat and developed anxiety and a racing HR after. This resolved spontaneously and she did not have any coffee the following day. She had a cup of coffee again today and the rapid HR returned. It did not resolve for several hours prompting her to visit the emergency room. She describes chest tightness, SOB and anxiety along with tachycardia. On arrival to the ER her HR was between 130-150. An EKG revealed sinus tachycardia. Admitted for observation and further evaluation. Persistent sinus tachycardia - continues with intermittent bursts to the 130s on telemetry. TSH is normal, CBC and CMP normal. ECGs normal except sinus tach. ECHO showed Left ventricular systolic function is normal.No regional wall motion abnormalities noted.EF = 55-60%. No valvular pathology Cardiology saw pt and did not think any further eval needed to be done if ECHO was normal. Catecholamine excess is also unlikely as she has a low-normal BP. She does not have risk factors for PE, hypoxia or evidence of strain on EKG. -start Propranolol LA 60mg this evening for sinus tach, anxiety, as well as may help with migraine prophylaxis -finish collection of 24 urine metanephrines -can likely dc to home in the morning if rates are improved Lovenox prophylaxis Full code
[2016-07-29 03:31] VITALS: BP 86/55; PULSE 83; TEMP 36.7; O2SAT 99
[2016-07-29] MEDS: PROPRANOLOL HCL 60 MG LA CAP PO SCH (07:39)
[2016-07-29 07:58] VITALS: BP_SYST 97; PULSE 71; TEMP 36.8; O2SAT 97
[2016-07-29] MEDS ORDERED: PROP20TA67 PO (09:51)
--- NOTE | 2016-07-29 09:58 | Discharge Instructions ---
Discharge Instructions Admission Reason for Admission: Sinus Tachycardia Discharge Discharge Diagnosis / Problem: Sinus tachycardia Discharge Goals Goal(s): Improve disease control, Therapeutic intervention Activity Recommendations Activity Limitations: resume your previous activity Lifting Limitations: none Exercise/Sports Limitations: none Shower/Bathe: no limitations Driving or Machine Use: no limitations . Instructions / Follow-Up Instructions / Follow-Up You were admitted for a fast heart rate called sinus tachycardia which is a normal rhythm. This was likely caused from taking in excessive caffeine combined with anxiety, on top of your naturally high-normal resting heart rate. You were started on a medication called propranolol and your heart rate came down to a normal range even when walking. Your thyroid function was normal as well as your blood count, electrolytes, and kidney function. You were also seen by a Risk Compliance Manager who felt that there was nothing concerning for a heart problem on all of your workup. You did collect a 24 hour urine test and the results of this can be followed up on after discharge with your PCP. You can take this medication twice a day as needed for anxiety, heart palpitations, but if taken daily, it is also an excellent migraine prevention medication. Please keep your follow up appointment with your PCP tomorrow. Current Hospital Diet Patient's current hospital diet: Regular Diet Discharge Diet Recommended Diet: Regular Diet Procedures Procedures Performed: ECHOCARDIOGRAM Pending Studies Studies pending at discharge: yes List of pending studies: 24 hour urine metanephrines Medical Emergencies . Who to Call and When: Medical Emergencies: If at any time you feel your situation is an emergency, please call 911 immediately. . Non-Emergent Contact Non-Emergency issues call your: Primary Care Provider Call Non-Emergent contact if: you have any medication questions if your heart rate is getting faster or your symptoms are changing or worsening , or for any other acute concerns. . . "Provider Documentation" section prepared by Doreen Magana. VTE Core Measure Inpt VTE Proph given/why not?: Enoxaparin (Lovenox)SQ
[2016-07-29 10:03] VITALS: BP 97/55; PULSE 71; TEMP 36.8; O2SAT 97
[2016-08-02 15:35] LABS: METANEPHRINE 102 mcg/24 h (36-190); NORMETANEPHRINE UR 139 mcg/24 h (35-482); TOTAL METANEPHRINE 241 mcg/24 h (115-695)
--- NOTE | 2016-08-02 16:58 | Discharge Summary ---
Discharge Summary Date of Service Jul 29, 2016. Discharge Summary Admission Date: Jul 27, 2016 at 20:42 Discharge Date: Jul 29, 2016 Discharge Disposition: Home Principal Diagnosis: Sinus tachycardia Problems/Secondary Diagnoses: Catamenial migraines Anxiety disorder Procedures: ECHO: * Left ventricular systolic function is normal. * No regional wall motion abnormalities noted. * Ejection Fraction = 55-60%. * No valvular pathology. Consultations: Cardiology Medication Reconciliation New Medications: Propranolol (Inderal) 20 Mg Tab 20 MG PO BID for Anxiety, #60 TAB or prn rapid heart rate Discontinued Medications: Vjrwtrl-Mbrxyzkcmywtd-Varfqxlu (Excedrin Migraine) 1 Tab Tab 1 TAB PO PRN Referrals At Discharge Follow up Referrals: Family Practice Referral - 07/30/16 with Bonnie Evans C.R.N.P. Discharge Exam Doing well on day of discharge, started on Inderal LA 60mg and had low normal BP but no lightheadedness even with ambulation. Did feel very tired though from medication. No events on tele and sinus tachycardia resolved after starting medication. Review of Systems: Constitutional: + fatigue, No fever Eyes: No problem reported ENT: No problem reported Respiratory: No shortness of breath Cardiovascular: No chest pain, No palpitations Abdomen: No nausea, No pain, No vomiting Musculoskeletal: No problem reported Genitourinary - Female: No problem reported Neurologic: No problem reported Psychiatric: + anxiety Endocrine: No problem reported Hematologic / Lymphatic: No problem reported Integumentary: No problem reported Physical Exam: General Appearance: no apparent distress, + thin Eyes: normal inspection, EOMI, sclerae normal ENT: hearing grossly normal, pharynx normal Neck: supple, no JVD, trachea midline Respiratory/Chest: lungs clear, normal breath sounds, no respiratory distress, no accessory muscle use Cardiovascular: regular rate, rhythm, no edema, no gallop, no JVD, no murmur , normal peripheral pulses Abdomen / GI: normal bowel sounds, non tender, soft, no organomegaly, no pulsatile mass Extremities: normal inspection, no calf tenderness, normal capillary refill , no pedal edema, normal range of motion Neurologic/Psychiatric: alert, normal mood/affect, oriented x 3 Skin: normal color, warm/dry, no rash Hospital Course 31 y/o F with history of menstrual migraines here with sinus tachycardia and palpitations. The pt took 2 Excedrin and drank 2 cups of coffee on Sat and developed anxiety and a racing HR after. This resolved spontaneously and she did not have any coffee the following day. She had a cup of coffee again today and the rapid HR returned. It did not resolve for several hours prompting her to visit the emergency room. She describes chest tightness, SOB and anxiety along with tachycardia. On arrival to the ER her HR was between 130-150. An EKG revealed sinus tachycardia. A chest CT performed 2 days prior for the same thing was negative for PE or any other abnormality. Admitted for observation and further evaluation. Persistent sinus tachycardia - continued with intermittent bursts to the 130s on telemetry on the first day. TSH is normal, CBC and CMP normal. ECGs normal except sinus tach. ECHO showed Left ventricular systolic function is normal.No regional wall motion abnormalities noted.EF = 55-60%. No valvular pathology Cardiology saw pt and did not think any further eval needed to be done if ECHO was normal. Catecholamine excess is also unlikely as she has a low-normal BP. She does not have risk factors for PE, hypoxia or evidence of strain on EKG. -started Propranolol LA 60mg for sinus tach, anxiety, as well as may help with migraine prophylaxis--> caused tiredness -discharged to home with Rx for short acting propranolol 20mg po bid prn anxiety or rapid heart rate -finished collection of 24 urine metanephrines--> results normal at time of dictation of this dc summary -f/u with PCP within 1 week Lovenox for DVT prophylaxis Full code Total Time Spent: Greater than 30 minutes This includes examination of the patient, discharge planning, medication reconciliation, and communication with other providers. Discharge Instructions Please refer to the electronic Patient Visit Report (Discharge Instructions) for additional information. Follow-Up with PCP within 1 week Additional Copies To Bonnie Evans C.R.N.P.
== END 2016-07-29 10:45 | disposition home or self-care (01) ==
LOC: ENRESERVTM → ENRESERVDT → C.EDB 15:46 → C.2T 20:42
PROVIDERS: ADMIT Internal Medicine; ATTEND Family Medicine
DX: R00.0 Tachycardia, unspecified (principal); F41.9 Anxiety disorder, unspecified; Z51.81 Encounter for therapeutic drug level monitoring; Z83.3 Family history of diabetes mellitus; Z82.49 Family history of ischemic heart disease and other diseases of the circulatory system

== ENCOUNTER 2016-09-03 13:08 | Emergency (ER) | payer OTHER ==
[~2016-09-03] VITALS: Ht 147.3 cm; Wt 43.2 kg
[~2016-09-03 13:08] MED LIST changes: -ASPI-390 PO; +PROP20TA67 PO
[2016-09-03 13:18] VITALS: TEMP 36.8; Ht 147.3 cm; Wt 43.2 kg
[2016-09-03] MEDS ORDERED: SODIUM CHLORIDE 0.9% 1000ML 500 ML IV STA (13:26)
--- NOTE | 2016-09-03 13:39 | EMERGENCY ROOM VISIT NOTE ---
History Report prepared by Alessandro: Meagan Hutson Under the Supervision of: Dr. Sikp Chau M.D. First contact with patient: 13:21 Chief Complaint: ILLNESS Stated Complaint: SHAKING, DIZZY, SOB, LIGHT HEADED History of Present Illness The patient is a 31 year old female who presents to the Emergency Room with complaints of persistent dizziness that began this morning. The patient has had trouble with anxiety and panic attacks over the past month and a half. She is unsure why her anxiety has worsened. She was seen by her PCP and put on Klonopin and Celexa, although she has been hesitant to take the Klonopin. She took Klonopin once in the past without taking the Celexa and simply felt tired. This morning, she took a dose of Klonopin in addition to the Celexa and her dizziness began afterwards. She also complains of feeling shaky and "out of it. " The patient is concerned about embedded ticks she noticed on her a few weeks ago. She is outside frequently and has dogs that have had ticks. Denies urinary symptoms or other complaints. There is no chance of . The patient was in the hospital for tachycardia in July and was told to take Propranolol but her PCP has since taken her off of it because her blood pressure was low. Source of History: patient Onset: this morning Position: other (global) Quality: other (dizziness) Timing: other (persistent) Associated Symptoms: No urinary symptoms Note: Other symptoms: shakiness, "out of it" Review of Systems See HPI for pertinent positives & negatives. A total of 10 systems reviewed and were otherwise negative. Past Medical & Surgical Medical Problems: (1) Anemia (2) Anxiety (3) Sinus tachycardia Family History Diabetes mellitus Hypertension Social History Smoking Status: Former Smoker Alcohol Use: none Drug Use: none Marital Status: Occupation Status: employed Current/Historical Medications Scheduled Citalopram Hydrobromide (Citalopram Hydrobromide), 5 MG PO DAILY Scheduled PRN Clonazepam (Clonazepam Odt), TAB PO BID PRN for Anxiety Allergies Coded Allergies: Sulfa Drugs (Verified Allergy, Intermediate, RASH, SOB, 09/03/16) Physical Exam Vital Signs Date Time Temp Pulse Resp B/P Pulse Ox O2 Delivery O2 Flow Rate FiO2 09/03/16 15:37 97 18 99/71 98 Room Air 09/03/16 13:18 36.8 113 18 121/74 98 Room Air Physical Exam GENERAL: Patient is in no acute distress. HEENT: No acute trauma, normocephalic atraumatic, mucous membranes moist, no nasal congestion, no scleral icterus. NECK: No stridor, no adenopathy, no meningismus, trachea is midline. LUNGS: Clear to auscultation bilaterally, no wheeze, no rhonchi, breath sounds equal. HEART: Mildly tachycardic with a regular rhythm, no murmurs. ABDOMEN: Soft, nontender, bowel sounds positive, no hernias, no peritonitis. EXTREMITIES: No cyanosis or edema, full range of motion of all the joints without pain or difficulty, no signs for acute trauma. NEUROLOGIC: Oriented x 3, no acute motor or sensory deficits, no focal weakness. SKIN: No rash, no jaundice, no diaphoresis. PSYCH: Slightly anxious, cooperative, voluntary, not suicidal. Medical Decision & Procedures Laboratory Results 09/03/16 13:50 Red Blood Count 5.07, Mean Corpuscular Volume 82.1, Mean Corpuscular Hemoglobin 28.2, Mean Corpuscular Hemoglobin Concent 34.4, Mean Platelet Volume 9.8, Neutrophils (%) (Auto) 79.9, Lymphocytes (%) (Auto) 13.9, Monocytes (%) (Auto) 5.1, Eosinophils (%) (Auto) 0.4, Basophils (%) (Auto) 0.3, Neutrophils # (Auto) 6.15, Lymphocytes # (Auto) 1.07, Monocytes # (Auto) 0.39, Eosinophils # (Auto) 0.03, Basophils # (Auto) 0.02 09/03/16 13:50 Test 09/03/16 13:50 White Blood Count 7.69 K/uL (4.8-10.8) Red Blood Count 5.07 M/uL (4.2-5.4) Hemoglobin 14.3 g/dL (12.0-16.0) Hematocrit 41.6 % (37-47) Mean Corpuscular Volume 82.1 fL (80-100) Mean Corpuscular Hemoglobin 28.2 pg (25-34) Mean Corpuscular Hemoglobin Concent 34.4 g/dl (32-36) Platelet Count 322 K/uL (130-400) Mean Platelet Volume 9.8 fL (7.4-10.4) Neutrophils (%) (Auto) 79.9 % Lymphocytes (%) (Auto) 13.9 % Monocytes (%) (Auto) 5.1 % Eosinophils (%) (Auto) 0.4 % Basophils (%) (Auto) 0.3 % Neutrophils # (Auto) 6.15 K/uL (1.4-6.5) Lymphocytes # (Auto) 1.07 K/uL (1.2-3.4) Monocytes # (Auto) 0.39 K/uL (0.11-0.59) Eosinophils # (Auto) 0.03 K/uL (0-0.5) Basophils # (Auto) 0.02 K/uL (0-0.2) RDW Standard Deviation 40.5 fL (36.4-46.3) RDW Coefficient of Variation 13.5 % (11.5-14.5) Immature Granulocyte % (Auto) 0.4 % Immature Granulocyte # (Auto) 0.03 K/uL (0.00-0.02) Urine Color YELLOW Urine Appearance CLEAR (CLEAR) Urine pH 7.0 (4.5-7.5) Urine Specific [place] 1.003 (1.000-1.030) Urine Protein NEG (NEG) Urine Glucose (UA) NEG (NEG) Urine Ketones TRACE (NEG) Urine Occult Blood 3+ (NEG) Urine Nitrite NEG (NEG) Urine Bilirubin NEG (NEG) Urine Urobilinogen NEG (NEG) Urine Leukocyte Esterase TRACE (NEG) Anion Gap 7.0 mmol/L (3-11) Est Creatinine Clear Calc Drug Dose 69.2 ml/min Estimated GFR () 121.1 Estimated GFR (Non- 104.5 BUN/Creatinine Ratio 5.1 (10-20) Calcium Level 8.9 mg/dl (8.5-10.1) Magnesium Level 2.2 mg/dl (1.8-2.4) Total Bilirubin 0.6 mg/dl (0.2-1) Aspartate Amino Transf (AST/SGOT) 12 U/L (15-37) Alanine Aminotransferase (ALT/SGPT) 13 U/L (12-78) Alkaline Phosphatase 58 U/L (45-117) Total Protein 7.8 gm/dl (6.4-8.2) Albumin 4.1 gm/dl (3.4-5.0) Globulin 3.7 gm/dl (2.5-4.0) Albumin/Globulin Ratio 1.1 (0.9-2) Thyroid Stimulating Hormone (TSH) 0.607 uIu/ml (0.300-4.500) Human Chorionic Gonadotropin, Qual NEG (NEG) Lyme Disease IgG Antibody NEG (NEG) Lyme Disease IgM Antibody NEG (NEG) Laboratory results reviewed by me. Medications Administered Medications (Trade) Dose Ordered Sig/Osiel Route Start Time Stop Time Status Last Admin Dose Admin Sodium Chloride (Nss 1000ml) 500 ml @ 999 mls/hr Q31M STAT IV 09/03/16 13:26 09/03/16 13:56 DC 09/03/16 13:26 999 MLS/HR ECG Indication: other (dizziness) Rate (beats per minute): 95 Rhythm: normal sinus Findings: no acute ischemic change, no ectopy ED Course 1323: The patient was evaluated in room C1. A complete history and physical exam was performed. 1326: Ordered NSS 500 ml @ 999 mls/hr IV. 1511: Reevaluated the patient. Discussed results and discharge instructions: She verbalized understanding and agreement. The patient is ready for discharge. Medical Decision Differential includes but is not limited to dysrhythmia, electrolyte imbalance, dehydration, anemia, , Lyme disease, medication reaction. The patient presents with feeling agitated and jittery. She is concerned that she is having a medication reaction to her Klonopin and Celexa that she took around the same time. There was no significant anemia, no leukocytosis. No significant electrolyte abnormality, kidney failure or hepatitis. The patient appears to be in a euthyroid state. testing is negative. EKG shows a sinus rhythm, no acute ischemia. Lyme disease testing was negative. On exam, the patient was not toxic or febrile. There were no focal neurologic deficits. The patient presents with a presumed medication reaction. Her workup is benign , she did receive some IV saline, she is feeling improved. The patient was reassured. She will try to separate her medication dosing so as not to have a similar event. The patient can return for worsening symptoms or complaints. Impression Primary Impression: Anxiety Additional Impression: Medication reaction Scribe Attestation The scribe's documentation has been prepared under my direction and personally reviewed by me in its entirety. I confirm that the note above accurately reflects all work, treatment, procedures, and medical decision making performed by me. Departure Information Dispostion Home / Self-Care Referrals Susan. Gomez CRNP (PCP) Patient Instructions My [facility] Additional Instructions maybe try to separate your medication dosing testing today was all ok return if worsening Problem Qualifiers
[2016-09-03] MEDS ORDERED: CLON0.252 PO (13:54)
[2016-09-03] MEDS ORDERED: CITA10TA4 PO (13:54)
[2016-09-03 14:03] LABS: BASO % 0.3 %; BASO ABS # 0.02 K/uL (0-0.2); COMPLETE YES; EOS % 0.4 %; HEMATOCRIT 41.6 % (37-47); IG% 0.4 %; LYMPH % 13.9 %; LYMPH ABS # 1.07 K/uL (1.2-3.4); MEAN CELL VOLUME 82.1 fL (80-100); MEAN CORPUSCULAR HEMOGLOBIN 28.2 pg (25-34); MEAN CORPUSCULAR HGB CONC 34.4 g/dl (32-36); MEAN PLATELET VOLUME 9.8 fL (7.4-10.4); MONO % 5.1 %; NEUT % 79.9 %; PLATELET COUNT 322 K/uL (130-400); RED BLOOD COUNT 5.07 M/uL (4.2-5.4); WHITE BLOOD COUNT 7.69 K/uL (4.8-10.8)
[2016-09-03 14:25] LABS: BUN/CREATININE RATIO 5.1 (10-20); CALCIUM 8.9 mg/dl (8.5-10.1); CREATININE 0.76 mg/dl (0.60-1.20); MAGNESIUM 2.2 mg/dl (1.8-2.4); POTASSIUM 3.2 mmol/L (3.5-5.1)
[2016-09-03 14:26] LABS: PREG INTERNAL NEGATIVE QC NEG CLEAR BACKGROUND; PREG INTERNAL POSITIVE QC POS CONTROL LINE
[2016-09-03 14:54] LABS: ALB/GLOB RATIO 1.1 (0.9-2); THYROID STIMULATING HORMONE 0.607 uIu/ml (0.300-4.500)
[2016-09-03 14:55] LABS: LYME DISEASE AB IGG NEG (NEG)
[2016-09-03 14:59] LABS: LYME DISEASE AB IGM NEG (NEG)
[2016-09-03 15:37] VITALS: BP 99/71; PULSE 97; O2SAT 98
[2016-09-03 15:39] LABS: URINE APPEARANCE CLEAR (CLEAR); URINE BILIRUBIN NEG (NEG); URINE COLOR YELLOW; URINE NITRITE NEG (NEG); URINE SPECIFIC GRAVITY 1.003 (1.000-1.030); UROBILINOGEN NEG (NEG); ZZUR CULT IF INDIC CLEAN CATCH NO
[2016-09-03 15:43] LABS: MANUAL MICROSCOPIC REQUIRED? NO; REVIEW REQ? YES
== END 2016-09-03 16:00 | disposition home or self-care (01) ==
LOC: C.EDB 13:09 → C.EDC 16:00
DX: F41.9 Anxiety disorder, unspecified (principal); T88.7XXA Unspecified adverse effect of drug or medicament, initial encounter; X58.XXXA Exposure to other specified factors, initial encounter; D64.9 Anemia, unspecified; Z83.3 Family history of diabetes mellitus; Z82.49 Family history of ischemic heart disease and other diseases of the circulatory system; Z87.891 Personal history of nicotine dependence

== ENCOUNTER 2017-06-21 15:44 | Emergency (ER) | payer OTHER ==
[~2017-06-21] VITALS: Ht 147.3 cm; Wt 49.3 kg
[~2017-06-21 15:44] MED LIST changes: +CITA10TA4 PO; +CLON0.252 PO; -PROP20TA67 PO
[2017-06-21 15:54] VITALS: TEMP 36.5; Ht 147.3 cm; Wt 49.3 kg
[2017-06-21] MEDS ORDERED: ACETAMINOPHEN 325 MG TAB PO STA (16:11)
[2017-06-21] MEDS ORDERED: SODIUM CHLORIDE 0.9% 1000ML 1,000 ML IV ONE (16:15)
[2017-06-21] MEDS ORDERED: KETOROLAC TROMETHAMINE 15 MG/ML VIAL IV ONE (16:15)
[2017-06-21] MEDS ORDERED: KETOROLAC TROMETHAMINE 30 MG/ML VIAL ONE (16:19)
[2017-06-21 16:46] LABS: BASO % 0.3 %; BASO ABS # 0.02 K/uL (0-0.2); HEMATOCRIT 40.7 % (37-47); HEMOGLOBIN 13.7 g/dL (12.0-16.0); IG# 0.02 K/uL (0.00-0.02); LYMPH ABS # 0.33 K/uL (1.2-3.4); MEAN CELL VOLUME 81.4 fL (80-100); MEAN CORPUSCULAR HEMOGLOBIN 27.4 pg (25-34); MEAN CORPUSCULAR HGB CONC 33.7 g/dl (32-36); MONO % 4.1 %; MONO ABS # 0.27 K/uL (0.11-0.59); NEUT % 90.3 %; NEUT ABS # 5.96 K/uL (1.4-6.5); PLATELET COUNT 221 K/uL (130-400); RED CELL DISTRIBUTION WIDTH CV 13.5 % (11.5-14.5); RED CELL DISTRIBUTION WIDTH SD 40.5 fL (36.4-46.3)
[2017-06-21] MEDS ORDERED: IBUP-1050 PO (16:59)
--- NOTE | 2017-06-21 17:00 | DIAGNOSTIC IMAGING REPORT ---
CHEST 2 VIEWS ROUTINE HISTORY: 32 years-old Female Cough. Flu like. Acute cough COMPARISON: CTA of the chest 07/25/2016 TECHNIQUE: PA and lateral views of the chest FINDINGS: Azygos lobe and fissure. Cardiac mediastinal and hilar silhouettes are within normal limits. There is no pneumothorax, pleural effusion, focal airspace consolidation or overt pulmonary edema. Bones of the chest appear grossly intact. IMPRESSION: No acute process. The above report was generated using voice recognition software. It may contain grammatical, syntax or spelling errors. Electronically signed by: Bony Franks M.D. 06/21/2017 4:59 PM Dictated Date/Time: 06/21/2017 4:58 PM
[2017-06-21 17:08] LABS: CALCIUM 8.9 mg/dl (8.5-10.1); CREATININE 0.78 mg/dl (0.60-1.20); POTASSIUM 3.4 mmol/L (3.5-5.1)
[2017-06-21 17:11] LABS: TOTAL PROTEIN 8.3 gm/dl (6.4-8.2)
[2017-06-21 17:12] LABS: INFLUENZA B ANTIGEN Neg for Influ B (NEG)
[2017-06-21] MEDS ORDERED: OSELTAMIVIR PHOSPHATE 75 MG CAP PO STA (17:16)
[2017-06-21] MEDS ORDERED: OSEL75CA12 PO (17:43)
[2017-06-21 17:45] VITALS: BP 108/64; PULSE 129; O2SAT 98
--- NOTE | 2017-06-21 22:46 | EMERGENCY ROOM VISIT NOTE ---
History First contact with patient: 15:58 Chief Complaint: FLU LIKE SX Stated Complaint: FLU, ANXIETY, RAPID HEARTRATE History of Present Illness The patient is a 32 year old female who presents to the Emergency Room with complaints of flulike symptoms for the past 12 hours. 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 The patient woke up today with chills and has been taking ibuprofen and Tylenol at home. She has not had much of an appetite. She has had a persistent dry cough for the past one to 2 days. She considers herself otherwise usually healthy and rates her discomfort a 7/10. Review of Systems More than 10 systems were reviewed and otherwise negative with the exception of history of present illness. Past Medical/Surgical History Medical Problems: (1) Anemia (2) Anxiety (3) Sinus tachycardia Family History Diabetes mellitus Hypertension Social History Smoking Status: Never Smoker Alcohol Use: none Drug Use: none Marital Status: Occupation Status: employed Current/Historical Medications Scheduled Ibuprofen (Advil), 200-400 MG PO PRN UD Oseltamivir (Tamiflu), 75 MG PO BID Physical Exam Vital Signs Date Time Temp Pulse Resp B/P (MAP) Pulse Ox O2 Delivery O2 Flow Rate FiO2 06/21/17 17:45 129 18 108/64 98 Room Air 06/21/17 15:54 36.5 145 18 114/68 99 Room Air Physical Exam VITALS: Vitals are noted on the nurse's note and reviewed by myself. Vital signs with tachycardia GENERAL: Well-developed, well-nourished, white female who is ill appearing but nontoxic. HEAD: Normocephalic atraumatic. EARS: External ear normal. External auditory canals clear, tympanic membranes pearly willson without erythema or effusion bilaterally. EYES: Pupils equal round and reactive to light and accommodation. Conjunctivae without injection, sclerae without icterus. Extraocular movements intact. NOSE: Patent, turbinates without inflammation or discharge. MOUTH: Mucous membranes moist. Tonsils are not enlarged. Pharynx without erythema, blood, or exudate. Uvula midline. Airway patent. NECK: Supple without nuchal rigidity. No lymphadenopathy. No thyromegaly. Cervical spine is nontender. HEART: Tachycardic rate with regular rhythm LUNGS: Clear to auscultation bilaterally without wheezes, rales or rhonchi. No retractions or accessory muscle use. ABDOMEN: Positive normal bowel sounds x 4. Soft, nontender, without masses or organomegaly. No guarding or rebound tenderness. MUSCULOSKELETAL: No muscle atrophy, erythema, or edema noted. Full range of motion without joint tenderness in all extremities. Medical Decision & Procedures ER Provider Diagnostic Interpretation: CHEST 2 VIEWS ROUTINE HISTORY: 32 years-old Female Cough. Flu like. Acute cough COMPARISON: CTA of the chest 07/25/2016 TECHNIQUE: PA and lateral views of the chest FINDINGS: Azygos lobe and fissure. Cardiac mediastinal and hilar silhouettes are within normal limits. There is no pneumothorax, pleural effusion, focal airspace consolidation or overt pulmonary edema. Bones of the chest appear grossly intact. IMPRESSION: No acute process. Laboratory Results 06/21/17 16:30 Red Blood Count 5.00, Mean Corpuscular Volume 81.4, Mean Corpuscular Hemoglobin 27.4, Mean Corpuscular Hemoglobin Concent 33.7, Mean Platelet Volume 10.0, Neutrophils (%) (Auto) 90.3, Lymphocytes (%) (Auto) 5.0, Monocytes (%) (Auto) 4.1, Eosinophils (%) (Auto) 0.0, Basophils (%) (Auto) 0.3, Neutrophils # (Auto) 5.96, Lymphocytes # (Auto) 0.33, Monocytes # (Auto) 0.27, Eosinophils # (Auto) 0.00, Basophils # (Auto) 0.02 06/21/17 16:30 Test 06/21/17 16:30 White Blood Count 6.60 K/uL (4.8-10.8) Red Blood Count 5.00 M/uL (4.2-5.4) Hemoglobin 13.7 g/dL (12.0-16.0) Hematocrit 40.7 % (37-47) Mean Corpuscular Volume 81.4 fL (80-100) Mean Corpuscular Hemoglobin 27.4 pg (25-34) Mean Corpuscular Hemoglobin Concent 33.7 g/dl (32-36) Platelet Count 221 K/uL (130-400) Mean Platelet Volume 10.0 fL (7.4-10.4) Neutrophils (%) (Auto) 90.3 % Lymphocytes (%) (Auto) 5.0 % Monocytes (%) (Auto) 4.1 % Eosinophils (%) (Auto) 0.0 % Basophils (%) (Auto) 0.3 % Neutrophils # (Auto) 5.96 K/uL (1.4-6.5) Lymphocytes # (Auto) 0.33 K/uL (1.2-3.4) Monocytes # (Auto) 0.27 K/uL (0.11-0.59) Eosinophils # (Auto) 0.00 K/uL (0-0.5) Basophils # (Auto) 0.02 K/uL (0-0.2) RDW Standard Deviation 40.5 fL (36.4-46.3) RDW Coefficient of Variation 13.5 % (11.5-14.5) Immature Granulocyte % (Auto) 0.3 % Immature Granulocyte # (Auto) 0.02 K/uL (0.00-0.02) Urine Color YELLOW Urine Appearance CLEAR (CLEAR) Urine pH 5.0 (4.5-7.5) Urine Specific [place] 1.013 (1.000-1.030) Urine Protein NEG (NEG) Urine Glucose (UA) NEG (NEG) Urine Ketones 1+ (NEG) Urine Occult Blood NEG (NEG) Urine Nitrite NEG (NEG) Urine Bilirubin NEG (NEG) Urine Urobilinogen NEG (NEG) Urine Leukocyte Esterase MODERATE (NEG) Urine WBC (Auto) 10-30 /hpf (0-5) Urine RBC (Auto) 0-4 /hpf (0-4) Urine Hyaline Casts (Auto) 1-5 /lpf (0-5) Urine Epithelial Cells (Auto) >30 /lpf (0-5) Urine Bacteria (Auto) NEG (NEG) Urine Test NEG (NEG) Anion Gap 8.0 mmol/L (3-11) Est Creatinine Clear Calc Drug Dose 72.3 ml/min Estimated GFR () 116.6 Estimated GFR (Non- 100.6 BUN/Creatinine Ratio 8.9 (10-20) Calcium Level 8.9 mg/dl (8.5-10.1) Total Bilirubin 0.6 mg/dl (0.2-1) Aspartate Amino Transf (AST/SGOT) 42 U/L (15-37) Alanine Aminotransferase (ALT/SGPT) 67 U/L (12-78) Alkaline Phosphatase 67 U/L (45-117) Total Protein 8.3 gm/dl (6.4-8.2) Albumin 4.0 gm/dl (3.4-5.0) Globulin 4.3 gm/dl (2.5-4.0) Albumin/Globulin Ratio 0.9 (0.9-2) Influenza Type A Antigen POS for Influ A (NEG) Influenza Type B Antigen Neg for Influ B (NEG) Medications Administered Medications (Trade) Dose Ordered Sig/Osiel Route Start Time Stop Time Status Last Admin Dose Admin Sodium Chloride 1,000 ml @ 999 mls/hr Q1H1M ONCE IV 06/21/17 16:15 06/21/17 17:15 DC 06/21/17 16:25 999 MLS/HR Ketorolac Tromethamine (Toradol Inj) 15 mg NOW ONCE IV 06/21/17 16:15 06/21/17 16:16 DC 06/21/17 16:24 15 MG Acetaminophen (Tylenol Tab) 650 mg NOW STAT PO 06/21/17 16:11 06/21/17 16:14 DC 06/21/17 16:24 650 MG Oseltamivir Phosphate (Tamiflu Cap) 75 mg NOW STAT PO 06/21/17 17:16 06/21/17 17:17 DC 06/21/17 17:44 75 MG ED Course Physical exam and history were performed. Nursing notes, EMR, and Medication List were personally reviewed. Patient appears to have flulike symptoms for the past day. The patient does appear ill on exam, but not toxic. IV access was established and labs were obtained. The patient was hydrated and medicated as above. Chest x-ray was performed. Viral swabs were gathered. The patient's blood work is as above and was reviewed. She does not have a significantly elevated white blood cell count, gross anemia, bandemia, or significant electrolyte imbalance. Transaminases are nondiagnostic. Urine is without significant findings. She is not . Her influenza A swab is positive, and this correlates with her symptoms. She was given Tamiflu by mouth. Overall the patient appears well for discharge home. She will be given a continuation course of Tamiflu. Her heart rate did improve with fluids, and I suspect it is elevated because of her illness. I did write a note for several days off work. She is to follow-up with her primary care physician with any ongoing or persistent symptoms. The chart was completed utilizing Dragon Speech Voice Recognition Software. Grammatical errors, random word insertions, pronoun errors, and incomplete sentences are an occasional consequence of this system due to software limitations, ambient noise, and hardware issues. Any formal questions or concerns about the content, text, or information contained within the body of this dictation should be directly addressed to the provider for clarification. . Medical Decision Differential diagnosis: Etiologies such as viral syndrome, otitis, pharyngitis, pneumonia, influenza, meningitis, urinary tract infection, sepsis, bacteremia, as well as others were entertained. Impression Primary Impression: Influenza A Departure Information Dispostion Home / Self-Care Condition GOOD Prescriptions Oseltamivir (Tamiflu) 75 Mg Cap 75 MG PO BID for 5 Days, #10 CAP Prov: Keith Nelson PA-C 06/21/17 Forms HOME CARE DOCUMENTATION FORM, Work Instructions, Additional Instructions: Patient was seen and evaluated today in the ER for medical care. Return t work on 06/27/2017. Please excuse. IMPORTANT VISIT INFORMATION Patient Instructions My [facility] Additional Instructions You were seen and evaluated today on an emergency basis only. This is not a substitute for, or an effort to provide, complete comprehensive medical care. It is not possible to recognize and treat all injuries or illnesses in a single emergency department visit. For this reason it is recommended that you followup with your PCP with any ongoing symptoms next week. For baseline pain relief you may alternate ibuprofen and acetaminophen every 4 hours for pain control. Take 400-600 mg ibuprofen (Advil) and then 4 hours later take 650-1000 mg acetaminophen (Tylenol). Do not take more than 3000 mg acetaminophen in a single day. Take Tamiflu 75 mg twice daily for the next 5 days Stay well hydrated. You are welcome to return to the emergency department anytime with new, worsening, or concerning symptoms. Work Instructions Additional Work Instructions: Patient was seen and evaluated today in the ER for medical care. Return to work on 06/27/2017. Please excuse.
== END 2017-06-21 18:03 | disposition home or self-care (01) ==
LOC: C.EDB 15:45 → C.EDC 18:03
DX: J11.1 Influenza due to unidentified influenza virus with other respiratory manifestations (principal); D64.9 Anemia, unspecified; F41.9 Anxiety disorder, unspecified; R00.0 Tachycardia, unspecified; Z83.3 Family history of diabetes mellitus; Z82.49 Family history of ischemic heart disease and other diseases of the circulatory system

== ENCOUNTER 2017-09-23 09:49 | Emergency (ER) | payer OTHER ==
[~2017-09-23] VITALS: Ht 147.3 cm; Wt 46.6 kg
[~2017-09-23 09:49] MED LIST changes: -CITA10TA4 PO; -CLON0.252 PO; +IBUP-1050 PO
[2017-09-23 09:57] VITALS: TEMP 36.5; Ht 147.3 cm; Wt 46.6 kg
[2017-09-23 11:07] LABS: BASO % 0.2 %; BASO ABS # 0.02 K/uL (0-0.2); EOS % 1.7 %; EOS ABS # 0.16 K/uL (0-0.5); HEMATOCRIT 40.1 % (37-47); HEMOGLOBIN 13.4 g/dL (12.0-16.0); IG# 0.03 K/uL (0.00-0.02); LYMPH % 11.8 %; LYMPH ABS # 1.09 K/uL (1.2-3.4); MEAN CELL VOLUME 80.5 fL (80-100); MEAN CORPUSCULAR HEMOGLOBIN 26.9 pg (25-34); MEAN CORPUSCULAR HGB CONC 33.4 g/dl (32-36); MEAN PLATELET VOLUME 9.9 fL (7.4-10.4); MONO % 6.2 %; MONO ABS # 0.57 K/uL (0.11-0.59); NEUT % 79.8 %; NEUT ABS # 7.35 K/uL (1.4-6.5); PLATELET COUNT 237 K/uL (130-400); RED CELL DISTRIBUTION WIDTH SD 41.4 fL (36.4-46.3); WHITE BLOOD COUNT 9.22 K/uL (4.8-10.8)
--- NOTE | 2017-09-23 11:25 | DIAGNOSTIC IMAGING REPORT ---
CHEST 2 VIEWS ROUTINE CLINICAL HISTORY: 32 years-old Female presenting with dyspnea. TECHNIQUE: PA and lateral views of the chest were obtained. COMPARISON: 06/21/2017. FINDINGS: Cardiomediastinal silhouette normal. Azygous fissure noted. Lungs and pleural spaces clear. Osseous structures normal. Upper abdomen normal. IMPRESSION: 1. No acute cardiopulmonary disease. Electronically signed by: Rene Galvez M.D. 09/23/2017 11:23 AM Dictated Date/Time: 09/23/2017 11:22 AM
[2017-09-23 11:33] LABS: ALBUMIN 3.9 gm/dl (3.4-5.0); CALCIUM 8.8 mg/dl (8.5-10.1); CREATININE 0.69 mg/dl (0.60-1.20); TOTAL PROTEIN 8.3 gm/dl (6.4-8.2)
--- NOTE | 2017-09-23 11:33 | EMERGENCY ROOM VISIT NOTE ---
History First contact with patient: 10:03 Chief Complaint: LEG PAIN,LEG INJURY Stated Complaint: LEFT LEG PAIN History of Present Illness The patient is a 32 year old female who presents to the Emergency Room after being sent from urgent care with complaints of left leg pain and mild inflammation. The patient reports pain in the back of the calf radiating towards the knee and occasionally up toward the upper leg. The pain began approximately 4 PM yesterday. She describes it as achy and crampy and rates it at 6/10. She did take 1 dose of Tylenol this morning with no significant improvement in symptoms. The patient denies any history of blood clots, smoking , recent travel, or oral contraceptives. She does report recent upper respiratory infection/cold, and has been relatively sedentary at home for the past 3 days. She denies any redness, significant swelling, or palpable cord. She does report a history of anxiety, and states she tends to get an elevated heart rate associated with her anxiety as well as tachycardia with medical examinations. Review of Systems A complete 10 point review of systems was reviewed with the patient with pertinent positives and negatives as per history of present illness. All else were negative. Past Medical/Surgical History Medical Problems: (1) Anemia (2) Anxiety (3) Sinus tachycardia Family History Diabetes mellitus Hypertension Social History Smoking Status: Never Smoker Alcohol Use: none Drug Use: none Marital Status: Occupation Status: employed Current/Historical Medications No Active Prescriptions or Reported Meds Physical Exam Vital Signs Date Time Temp Pulse Resp B/P (MAP) Pulse Ox O2 Delivery O2 Flow Rate FiO2 09/23/17 14:30 102 16 140/62 100 09/23/17 13:43 134 09/23/17 13:28 125 18 131/74 99 Room Air 09/23/17 11:57 100 Room Air 09/23/17 11:52 126 16 126/70 99 Room Air 09/23/17 11:03 108 09/23/17 09:57 36.5 110 20 118/83 100 Room Air Physical Exam VITALS: Vitals are noted on the nurse's note and reviewed by myself. The patient is tachycardic. GENERAL: This is a 32-year-old white female, in no acute distress, nondiaphoretic, well-developed well-nourished. SKIN: The skin was without rashes, erythema, edema, or bruising. There is no tenting of the skin. Capillary reflex less than 2 seconds. HEAD: Normocephalic atraumatic. EARS: External auditory canals clear, tympanic membranes pearly willson without erythema or effusion bilaterally. EYES: Pupils equal round and reactive to light and accommodation. Conjunctivae without injection, sclerae without icterus. Extraocular movements intact. NOSE: Patent, turbinates without inflammation or discharge. No sinus tenderness. MOUTH: Mucous membranes moist. Tonsils are not enlarged. Pharynx without erythema or exudate. Uvula midline. Airway patent. Tongue does not deviate. NECK: Supple without nuchal rigidity. No lymphadenopathy. No thyromegaly. Cervical spine is nontender. No JVD. HEART: Regular rate and rhythm without murmurs gallops or rubs. LUNGS: Clear to auscultation bilaterally without wheezes, rales or rhonchi. No dullness to percussion. No retractions or accessory muscle use. ABDOMEN: Positive bowel sounds x 4. Normal tympanic percussion. Soft, nontender, without masses or organomegaly. Mota sign negative. No guarding or rebound tenderness. MUSCULOSKELETAL: No muscle atrophy, erythema, or edema noted. Full range of motion without joint tenderness in all extremities. Mild tenderness of the posterior left calf. No significant swelling, erythema, or palpable cord. Otherwise, no tenderness to palpation. Normal gait. Strength 5/5 throughout. NEURO: Patient was alert and oriented to person place and time. Normal sensation to light and sharp touch. Deep tendon reflexes 2+ throughout. No focal neurological deficits. Medical Decision & Procedures ER Provider Diagnostic Interpretation: CHEST 2 VIEWS ROUTINE CLINICAL HISTORY: 32 years-old Female presenting with dyspnea. TECHNIQUE: PA and lateral views of the chest were obtained. COMPARISON: 06/21/2017. FINDINGS: Cardiomediastinal silhouette normal. Azygous fissure noted. Lungs and pleural spaces clear. Osseous structures normal. Upper abdomen normal. IMPRESSION: 1. No acute cardiopulmonary disease. Electronically signed by: Rene Galvez M.D. 09/23/2017 11:23 AM Dictated Date/Time: 09/23/2017 11:22 AM LEFT LOWER EXTREMITY VENOUS DOPPLER CLINICAL HISTORY: Left posterior knee/calf pain. COMPARISON STUDY: No previous studies for comparison. TECHNIQUE: Sonography of the deep venous system of the left lower extremity was performed. Compression and augmentation were evaluated. FINDINGS: The left common femoral, superficial femoral and popliteal veins were compressible. Augmentation was normal. Flow was shown within the deep calf vessels. IMPRESSION: No evidence of deep venous thrombus within the left lower extremity. Electronically signed by: Jus Case M.D. 09/23/2017 11:34 AM Dictated Date/Time: 09/23/2017 11:[address] ANGIOGRAM OF THE CHEST CLINICAL HISTORY: Dyspnea. Tachycardia. COMPARISON STUDY: Chest x-ray dated 09/23/2017. Chest CT dated 07/25/2016. TECHNIQUE: Following the IV administration of 94 cc of Optiray 320, CT angiogram of the chest was performed from the upper abdomen to the thoracic inlet utilizing the pulmonary embolus protocol. Images are reviewed in the axial, sagittal, and coronal planes. 3-D MIPS images are created and assessed. IV contrast was administered without complication. A dose lowering technique was utilized adhering to the principles of ALARA. CT DOSE: 195.14 mGy.cm FINDINGS: Thyroid: Imaged portions of the thyroid gland are normal in size and attenuation. Thoracic aorta: The thoracic aorta is normal in caliber and demonstrates standard 3-vessel arch anatomy. No dissection is seen. Pulmonary vasculature: The pulmonary trunk is normal in caliber. There are no filling defects identified in main, lobar, or segmental pulmonary branches to suggest pulmonary embolus. Heart: The heart is normal in size and configuration, and without pericardial effusion. Lungs and pleural spaces: Evaluation of the lung parenchyma is modestly degraded by motion artifact. There is no airspace consolidation or pleural effusion. An accessory azygous lobe is incidentally noted. The trachea and central airways are clear. Mediastinum: There is no mediastinal lymphadenopathy. Yesi: Clear. Axillae: There is no axillary lymphadenopathy. Upper abdomen: Partially visualized upper abdominal viscera is within normal limits. Skeletal structures: No lytic or blastic bony lesions are seen. IMPRESSION: 1. There is no evidence of pulmonary embolus in the main, lobar, or segmental pulmonary arteries. 2. The lungs are clear. Electronically signed by: Skip Gr M.D. 09/23/2017 1:41 PM Dictated Date/Time: 09/23/2017 1:31 PM Laboratory Results 09/23/17 11:00 Red Blood Count 4.98, Mean Corpuscular Volume 80.5, Mean Corpuscular Hemoglobin 26.9, Mean Corpuscular Hemoglobin Concent 33.4, Mean Platelet Volume 9.9, Neutrophils (%) (Auto) 79.8, Lymphocytes (%) (Auto) 11.8, Monocytes (%) (Auto) 6.2, Eosinophils (%) (Auto) 1.7, Basophils (%) (Auto) 0.2, Neutrophils # (Auto) 7.35, Lymphocytes # (Auto) 1.09, Monocytes # (Auto) 0.57, Eosinophils # (Auto) 0.16, Basophils # (Auto) 0.02 09/23/17 11:00 09/23/17 11:48 Test 09/23/17 11:00 09/23/17 11:48 09/23/17 12:20 White Blood Count 9.22 K/uL (4.8-10.8) Red Blood Count 4.98 M/uL (4.2-5.4) Hemoglobin 13.4 g/dL (12.0-16.0) Hematocrit 40.1 % (37-47) Mean Corpuscular Volume 80.5 fL (80-100) Mean Corpuscular Hemoglobin 26.9 pg (25-34) Mean Corpuscular Hemoglobin Concent 33.4 g/dl (32-36) Platelet Count 237 K/uL (130-400) Mean Platelet Volume 9.9 fL (7.4-10.4) Neutrophils (%) (Auto) 79.8 % Lymphocytes (%) (Auto) 11.8 % Monocytes (%) (Auto) 6.2 % Eosinophils (%) (Auto) 1.7 % Basophils (%) (Auto) 0.2 % Neutrophils # (Auto) 7.35 K/uL (1.4-6.5) Lymphocytes # (Auto) 1.09 K/uL (1.2-3.4) Monocytes # (Auto) 0.57 K/uL (0.11-0.59) Eosinophils # (Auto) 0.16 K/uL (0-0.5) Basophils # (Auto) 0.02 K/uL (0-0.2) RDW Standard Deviation 41.4 fL (36.4-46.3) RDW Coefficient of Variation 14.0 % (11.5-14.5) Immature Granulocyte % (Auto) 0.3 % Immature Granulocyte # (Auto) 0.03 K/uL (0.00-0.02) Anion Gap 6.0 mmol/L (3-11) Est Creatinine Clear Calc Drug Dose 75.5 ml/min Estimated GFR () 133.5 Estimated GFR (Non- 115.2 BUN/Creatinine Ratio 7.4 (10-20) Calcium Level 8.8 mg/dl (8.5-10.1) Total Bilirubin 0.6 mg/dl (0.2-1) Alanine Aminotransferase (ALT/SGPT) 49 U/L (12-78) Alkaline Phosphatase 76 U/L (45-117) Total Protein 8.3 gm/dl (6.4-8.2) Albumin 3.9 gm/dl (3.4-5.0) Globulin 4.4 gm/dl (2.5-4.0) Albumin/Globulin Ratio 0.9 (0.9-2) Prothrombin Time 10.4 SECONDS (9.0-12.0) Prothromb Time International Ratio 1.0 (0.9-1.1) Activated Partial Thromboplast Time 28.7 SECONDS (21.0-31.0) Partial Thromboplastin Ratio 1.1 D-Dimer 790 ug/L FEU (0-500) Aspartate Amino Transf (AST/SGOT) 36 U/L (15-37) Bedside D-Dimer > 450 ng/mlFEU (0-450) ECG Per My Interpretation Indication: SOB/dyspnea Rate (beats per minute): 108 Rhythm: sinus tachycardia Findings: no acute ischemic change Comparison ECG Date: 09/03/16 Change: no significant change (increased rate from 95 to 108) ED Course The patient was seen and evaluated as above IV access obtained, labs drawn. Chest x-ray performed and reviewed by myself and radiologist as above. Ultrasound performed and reviewed by myself and radiologist as above. Lab results were reviewed. The patient was reassessed. She continues to be tachycardic and short of breath. D-dimer performed. Due to elevated d-dimer, CTA chest for PE was performed. I discussed all findings with the patient at bedside. She is feeling much better. I discussed the case with Dr. Mendez. We were in agreement with the assessment and plan. Discharge instructions reviewed. The patient was discharged home in good condition. Medical Decision This is a 32-year-old female patient presents to the emergency department today complaining of left calf pain. On examination at urgent care, the patient's calf on the left was approximately 1 cm larger than the right calf. Ultrasound of the left lower extremity was negative for acute DVT. Labs did not show any significant abnormalities. There is no anemia, thrombocytopenia, or leukocytosis. Coagulation studies were normal. D-dimer was elevated. Sodium slightly low at 132, potassium slightly low at 3.4. The patient's renal and hepatic function were without abnormality. EKG reviewed by myself as above. Chest x-ray performed due to the initial complaints of dyspnea. Due to elevated d-dimer, dyspnea, and tachycardia, CT scan of the chest with contrast was performed. CT scan was negative for PE. The patient suspects anxiety as the cause of her tach dyspnea, as this is consistent with previous episodes of anxiety. There is no clot, prior to discharge, the patient states she is feeling much better. She will be discharged home with close follow-up by the PCP. The patient was certainly invited back to the emergency department for any significantly worsening symptoms or further concerns. Etiologies such as DVT, joint effusion, infection, trauma, muscular, lymphedema , idiopathic, CHF, PE, ACS, pneumonia, bronchitis, anxiety, as well as others were entertained. The chart was completed utilizing [employer] Speech voice recognition software. Grammatical errors, random word insertions, pronoun errors, and incomplete sentences are an occasional consequence of this system due to software limitations, ambient noise, and hardware issues. Any formal questions or concerns about the content, text, or information contained within the body of this dictation should be directly addressed to the provider for clarification. Medication Reconcilliation Current Medication List: was personally reviewed by me Blood Pressure Screening Patient's blood pressure: Elevated blood pressure Blood pressure disposition: Elevated BP felt to be situational Impression Primary Impression: Leg pain, left Additional Impressions: Tachycardia Dyspnea Anxiety Departure Information Dispostion Home / Self-Care Condition GOOD Prescriptions No Active Prescriptions or Reported Meds Referrals No Doctor, Assigned (PCP) Patient Instructions ED Leg Swelling Unilateral, Generalized Anxiety Disorder, My [facility] Additional Instructions You were seen in the emergency department today for left leg pain, tachycardia, and shortness of breath. Labs and imaging did not reveal any signs of DVT, PE, or other significant causes. I suspect anxiety is the cause of your tachycardia and shortness of breath. Please discuss treatment options with your PCP. You may use warm, moist compresses on the leg to help with discomfort. Ibuprofen(Motrin, Advil) may be used for fever or pain. Use 600mg every six hours as needed. Take with food. Avoid using more than 2400mg in a 24 hour period. Do not use 2400mg per day for more than three consecutive days without physician direction. Prolonged inappropriate use can lead to stomach upset or ulcers. (AND/OR) Acetaminophen(Tylenol) may be used for fever or pain. Use 1000mg every six hours as needed. Avoid using more than 3000mg in a 24 hour period. Return to the emergency department immediately for any significant swelling, redness, drainage, worsening pain, discoloration, numbness or tingling. Follow-up with your PCP within 1 week for reevaluation. Problem Qualifiers Additional Impressions: Dyspnea Dyspnea type: shortness of breath Qualified Codes: R06.02 - Shortness of breath
[2017-09-23 11:57] VITALS: O2SAT 100
[2017-09-23 12:09] LABS: PTT PATIENT 28.7 SECONDS (21.0-31.0)
[2017-09-23 12:10] LABS: POTASSIUM 3.4 mmol/L (3.5-5.1)
[2017-09-23] MEDS ORDERED: OPTIRAY 320 IV PRN (12:45)
--- NOTE | 2017-09-23 13:43 | DIAGNOSTIC IMAGING REPORT ---
CT ANGIOGRAM OF THE CHEST CLINICAL HISTORY: Dyspnea. Tachycardia. COMPARISON STUDY: Chest x-ray dated 09/23/2017. Chest CT dated 07/25/2016. TECHNIQUE: Following the IV administration of 94 cc of Optiray 320, CT angiogram of the chest was performed from the upper abdomen to the thoracic inlet utilizing the pulmonary embolus protocol. Images are reviewed in the axial, sagittal, and coronal planes. 3-D MIPS images are created and assessed. IV contrast was administered without complication. A dose lowering technique was utilized adhering to the principles of ALARA. CT DOSE: 195.14 mGy.cm FINDINGS: Thyroid: Imaged portions of the thyroid gland are normal in size and attenuation. Thoracic aorta: The thoracic aorta is normal in caliber and demonstrates standard 3-vessel arch anatomy. No dissection is seen. Pulmonary vasculature: The pulmonary trunk is normal in caliber. There are no filling defects identified in main, lobar, or segmental pulmonary branches to suggest pulmonary embolus. Heart: The heart is normal in size and configuration, and without pericardial effusion. Lungs and pleural spaces: Evaluation of the lung parenchyma is modestly degraded by motion artifact. There is no airspace consolidation or pleural effusion. An accessory azygous lobe is incidentally noted. The trachea and central airways are clear. Mediastinum: There is no mediastinal lymphadenopathy. Yesi: Clear. Axillae: There is no axillary lymphadenopathy. Upper abdomen: Partially visualized upper abdominal viscera is within normal limits. Skeletal structures: No lytic or blastic bony lesions are seen. IMPRESSION: 1. There is no evidence of pulmonary embolus in the main, lobar, or segmental pulmonary arteries. 2. The lungs are clear. Electronically signed by: Skip Gr M.D. 09/23/2017 1:41 PM Dictated Date/Time: 09/23/2017 1:31 PM
[2017-09-23 14:30] VITALS: BP 140/62; PULSE 102; O2SAT 100
== END 2017-09-23 14:15 | disposition home or self-care (01) ==
LOC: C.EDB 09:51 → C.EDA 14:15
DX: M79.605 Pain in left leg (principal); R00.0 Tachycardia, unspecified; R06.00 Dyspnea, unspecified; F41.9 Anxiety disorder, unspecified; R79.89 Other specified abnormal findings of blood chemistry